=== PATIENT | male | born 1985 | race Caucasian/White ===

== ENCOUNTER 2019-04-09 09:02 | Inpatient (IN) | payer SELFPAY | END 2019-04-15 10:07 | disposition home or self-care (01) | DRG 885 | PROVIDERS: Emergency Provider Emergency Medicine; Family Provider Internal Medicine | DX: F32.2 Major depressive disorder, single episode, severe without psychotic features (principal); R45.851 Suicidal ideations; F11.11 Opioid abuse, in remission; Z28.21 Immunization not carried out because of patient refusal; Z59.0 Homelessness; F17.210 Nicotine dependence, cigarettes, uncomplicated ==

== ENCOUNTER 2019-04-17 18:07 | Inpatient (IN) | payer SELFPAY ==
[2019-04-20] MEDS: trazodone 50 mg Tablet PO (01:23)
[2019-04-20 06:00] VITALS: BP 144/80; PULSE 63; RESP 20; TEMP 36.6; O2SAT 97
[2019-04-20] MEDS: fluoxetine 20 mg Capsule PO (10:19)
[2019-04-20] MEDS: pantoprazole DR 40 mg Tablet PO (10:19)
[2019-04-20 14:00] VITALS: BP 137/85; PULSE 71; RESP 20; TEMP 36.7; O2SAT 94
--- NOTE | 2019-04-20 17:12 | PM.NPN ---
Subjective NPU Subjective: Interval history: The patient presents today reporting that he had a rough time after discharge, a week or so ago. He reports that he had allowed the medication to get in his system, but then when he discharged he did not take the medication for, he reports, a day and a half. He reports being very tearful and having really bad thoughts secondary to the absence of the medication, to which he returned. We had a discussion about the fact that the social media marketing specialist had located a possible option for him, and he was being somewhat reticent to take that option. We discussed the fact that, ultimately, we have very limited resources in this area and once a person is ready to be discharged, and we find an option, we do not have that ability to have a person sit here for days or weeks while they decide whether they are going to accept the options that we are able to scratch out. We discussed the fact that he had every right to go somewhere and work on getting to some other place, but we do not have the ability to allow him to stay because he does not like the distance of long-term from a convenience store, or something like that. He understood and agreed that the medications are improving. We discussed the risks, benefits, and alternatives of maintaining his medication with a possible discharge tomorrow. Mental Status Exam MSE Comments: This is an obese, white male, with adequate dress, grooming, and eye contact. No abnormal movements. Cooperative with exam in no acute distress. Speech was normal rate and volume, and very effeminate. Mood described as getting better; affect congruent. Thought process, organized. Thought content: patient denied any suicidal or homicidal ideation, there were no delusions reported or noted, patient denied any auditory or visual hallucinations. Attention, concentration, and memory appeared intact but were not formally tested. Alert and oriented times three. Insight and judgment are limited but improving. Vitals/I&O/Wt Last Vital Signs Temp 98.1 F 04/20/19 14:00 Pulse 71 04/20/19 14:00 Resp 20 H 04/20/19 14:00 BP 137/85 04/20/19 14:00 Pulse Ox 94 04/20/19 14:00 Weight last 48 hrs Weight 104.326 kg A&P Additional A&P Information Additional A&P Information: This is a 34 year old, white male, with this as his second hospitalization in the last three weeks, with issues of homelessness and lack of access to care, who presents reporting that he is continuing to improve on the medication, and is agreeable to discharge in the morning. Continue current medication. Encourage individual, group, and milieu therapy. Continue q 15 minute checks for safety. Will work with client to get a reasonable housing option for discharge tomorrow. Involuntary Hold Information 96 Hour Hold: 96 Hour Involuntary Admission: No Attestations NPU Medical Necessity Statement*: Inpatient hospitalization is medically necessary and the clinically appropriate intervention at this time. We will continue current medications and plan for discharge in the morning. Coding Level of Care Code Acute Jet Wiper for Joesph Mann
[2019-04-20 20:01] VITALS: BP 130/76; PULSE 74; RESP 18; TEMP 36.6; O2SAT 97
[2019-04-20] MEDS: prazosin 1 mg Capsule PO (20:44)
[2019-04-20] MEDS: trazodone 150 mg Tablet PO (20:44)
[2019-04-21 06:00] VITALS: BP 125/80; PULSE 68; RESP 17; TEMP 36.7; O2SAT 96
[2019-04-21] MEDS: fluoxetine 20 mg Capsule PO (08:31)
[2019-04-21] MEDS: pantoprazole DR 40 mg Tablet PO (08:31)
[2019-04-21 14:00] VITALS: BP 131/81; PULSE 71; RESP 20; TEMP 37.1; O2SAT 97
--- NOTE | 2019-04-21 16:51 | PM.NPN ---
Subjective NPU Subjective: Interval history: Minesh presents today reporting that he needs to stay here until Thursday. He reports that when his father could pick him up. Upon further investigation it was discovered that he had not been conversing with his father but his father would pick him up Thursday morning and get him anywhere he wants to go. He reported that he was desiring some help with sleep and that the trazodone was not as helpful as he would like last night. Reporting he wanted something to knocked me out. We discussed the risks benefits alternatives of some augmenting medications but also discussed with him the importance of developing her good sleep hygiene, and he understood and agreed to proceed as is documented in this note. Mental Status Exam MSE Comments: This is an obese, white male, with adequate dress, grooming, and eye contact. No abnormal movements. Cooperative with exam in no acute distress. Speech was normal rate and volume, and very effeminate. Mood described as alright, but anxious without sleep; affect congruent. Thought process, organized. Thought content: patient denied any suicidal or homicidal ideation, there were no delusions reported or noted, patient denied any auditory or visual hallucinations. Attention, concentration, and memory appeared intact but were not formally tested. Alert and oriented times three. Insight and judgment are limited but improving. Vitals/I&O/Wt Last Vital Signs Temp 98.1 F 04/21/19 19:59 Pulse 64 04/21/19 19:59 Resp 18 04/21/19 19:59 BP 128/81 04/21/19 19:59 Pulse Ox 97 04/21/19 19:59 A&P Additional A&P Information Additional A&P Information: Additional A&P Information: This is a 34 year old, white male, with this as his second hospitalization in the last three weeks, with issues of homelessness and lack of access to care, who presents reporting that he is continuing to improve on the medication, and is agreeable to discharge to a custodial. Continue current medication. Encourage individual, group, and milieu therapy. Continue q 15 minute checks for safety. Will work with client to get a reasonable housing option for discharge Thursday. Involuntary Hold Information 96 Hour Hold: 96 Hour Involuntary Admission: No Attestations NPU Medical Necessity Statement*: Inpatient hospitalization is medically necessary and the clinically appropriate intervention at this time. We will increase his sleep medications and begin to prepare him for discharge Saturday morning. Likely length of stay 2 to 4 days. Coding Level of Care Code Acute Health Policy Nurse for Joesph Mann
[2019-04-21 19:59] VITALS: BP 128/81; PULSE 64; RESP 18; TEMP 36.7; O2SAT 97
[2019-04-21] MEDS: prazosin 1 mg Capsule PO (20:44)
[2019-04-21] MEDS: trazodone 150 mg Tablet PO (20:44)
[2019-04-22 06:00] VITALS: BP 114/69; PULSE 70; RESP 18; TEMP 36.8; O2SAT 97
[2019-04-22] MEDS: fluoxetine 20 mg Capsule PO (08:36)
[2019-04-22] MEDS: pantoprazole DR 40 mg Tablet PO (08:42)
--- NOTE | 2019-04-22 10:15 | DCPLANNER ---
Group Note: Patient attended morning group. Was pleasant and interacted appropriately with other patients.
[2019-04-22 13:07] VITALS: BP 136/86; PULSE 78; RESP 18; TEMP 36.8; O2SAT 96
--- NOTE | 2019-04-22 14:51 | PM.NPN ---
Subjective NPU Subjective: Interval history: Minesh presents today reporting that he did not sleep great last night but he did get the medication. He really wants to try it tonight to make sure that it is effective and works for him when he leaves tomorrow. He reports the plan is that his dad is going to come get him around 11 or so and take him to [place]. He reports that he feels the medications are helpful and the for the most part he has done because they were prescribed to him during his last visit. He feels optimistic about tomorrow and getting back on track. Mental Status Exam MSE Comments: This is an obese, white male, with adequate dress, grooming, and eye contact. No abnormal movements. Cooperative with exam in no acute distress. Speech was normal rate and volume, and very effeminate. Mood described as pretty good; affect congruent. Thought process, organized. Thought content: patient denied any suicidal or homicidal ideation, there were no delusions reported or noted, patient denied any auditory or visual hallucinations. Attention, concentration, and memory appeared intact but were not formally tested. Alert and oriented times three. Insight and judgment are limited but improving. Vitals/I&O/Wt Last Vital Signs Temp 98.9 F 04/22/19 20:25 Pulse 83 04/22/19 20:25 Resp 24 H 04/22/19 20:25 BP 124/82 04/22/19 20:25 Pulse Ox 97 04/22/19 20:25 A&P Assessment and plan (1) Depressive disorder, not elsewhere classified: This is a 34 year old, white male, with this as his second hospitalization in the last three weeks, with issues of homelessness and lack of access to care, who presents reporting that he is continuing to improve on the medication, and is agreeable to discharge to a group home. Continue current medication. Except increase the trazodone and add doxepin Encourage individual, group, and milieu therapy. Continue q 15 minute checks for safety. Will work with client to get a reasonable housing option for discharge Thursday. Status: Acute Code(s): F32.9 - Major depressive disorder, single episode, unspecified (2) Cluster B personality disorder: Status: Acute Code(s): F60.89 - Other specific personality disorders Involuntary Hold Information 96 Hour Hold: 96 Hour Involuntary Admission: No Attestations NPU Medical Necessity Statement*: Inpatient hospitalization is medically necessary and the clinically appropriate intervention at this time. We will increase his sleep medications and begin to prepare him for discharge tomorrow morning. Coding Level of Care Code Acute Photovoltaic Panel Installer for Joesph Mann Diagnoses Depressive disorder, not elsewhere classified F32.9 Cluster B personality disorder F60.89
[2019-04-22] MEDS: nicotine 21 mg Patch 1 PATCH TRANSDERMA (16:21)
[2019-04-22 20:25] VITALS: BP 124/82; PULSE 83; RESP 24; TEMP 37.2; O2SAT 97
[2019-04-22] MEDS: doxepin 10 mg Capsule PO (22:06)
[2019-04-22] MEDS: prazosin 1 mg Capsule PO (22:07)
[2019-04-22] MEDS: trazodone 100 mg Tablet 200 MG PO (22:07)
[2019-04-23 06:00] VITALS: BP 110/67; PULSE 84; RESP 18; TEMP 36.6; O2SAT 98
[2019-04-23] MEDS: fluoxetine 20 mg Capsule PO (09:13)
[2019-04-23] MEDS: pantoprazole DR 40 mg Tablet PO (09:13)
--- NOTE | 2019-04-23 11:40 | PM.NDC ---
Diagnoses at Discharge Discharge Diagnosis (1) Depressive disorder, not elsewhere classified: Status: Acute (2) Cluster B personality disorder: Status: Acute Reason for Visit Reason for Visit: Reason For Visit: Si Hospital Course Hospital Course History of Present Illness Date of Service: Apr 18, 2019 Chief Complaint: Depression, suicidal ideation, homelessness. HPI: Mr. Santana is a 31-year-old male who had sought admission here on the . He was discharged last Thursday and has now returned yesterday. He said he was suicidal again. He is indeed dysphoric but he certainly not dangerously suicidal. However, he having said the magic word , we are left with no choice but to hospitalize him for his safety. For details on this man's life, mood disorder, heroin abuse, recovery (presumed), see Dr. Rubio's admission history and physical. Allergies: Coded Allergies: TRAMADOL (Verified Allergy, Severe, 04/09/19) seizures CODEINE (Verified Allergy, Mild, 04/09/19) itching/burning sensation Active Meds: Current Hospital Medications: Medications (Trade) Dose Ordered Sig/Fredis Route PRN Reason Start Time Stop Time Status Last Admin Dose Admin Lorazepam (Ativan Inj) 2 mg Q4H PRN IM For Severe Aggression 04/17/19 18:15 Haloperidol Lactate (Haldol Inj) 5 mg Q4H PRN IM Severe Aggression 04/17/19 18:15 Diphenhydramine HCl (Benadryl Inj) 50 mg ONCE PRN IV Severe Extrapyramidal Symptoms 04/17/19 18:15 Benztropine Mesylate (Cogentin Tab) 1 mg BID PRN PO Mild Extrapyramidal symptoms 04/17/19 18:15 Benztropine Mesylate (Cogentin Inj) 1 mg ONCE PRN IM Severe Extrapyramidal Symptom 04/17/19 18:15 Acetaminophen (Tylenol Tab) 650 mg Q4H PRN PO FOR MILD PAIN 04/17/19 18:15 Trazodone HCl (Trazodone) 50 mg BEDTIME PRN PO FOR SLEEP 04/17/19 18:15 Nicotine (Nicoderm Patch) 21 mg DAILY PRN TD FOR WITHDRAWAL 04/17/19 18:15 Nicotine Polacrilex (Nicotine Gum) 2 mg Q2H PRN PO Withdrawal 04/17/19 18:15 Haloperidol (Haldol Tab) 5 mg Q4H PRN PO For agitation 04/17/19 18:15 Fluoxetine HCl (Prozac) 20 mg DAILY PO 04/19/19 10:00 Pantoprazole Sodium (Protonix Tab) 40 mg DAILY PO 04/19/19 10:00 Prazosin HCl (Minipres) 1 mg BID PO 04/18/19 22:00 Home Meds: Home Medications: Medications Dose Route/Sig Max Daily Dose Days Date Category Ativan Tab (Lorazepam) 1 Mg Tablet 1 Mg PO DAILY PRN 30 04/15/19 Rx Minipress Cap (Prazosin HCl) 1 Mg Capsule 1 Mg PO HS 30 04/15/19 Rx Protonix Tab (Pantoprazole Sodium) 40 Mg Tabec 40 Mg PO DAILY 30 04/15/19 Rx Prozac Cap (Fluoxetine HCl) 20 Mg Tablet 20 Mg PO DAILY 30 04/15/19 Rx Past Medical History Past Medical History: For details see Dr. Rubio's history and physical report. Nothing is changed in the last week except that he now has a record of one psychiatric hospitalization. Smoke: Reports: Current (somehow this homeless man scrapes together the wherewithal for a pack a day) Occupation: Reports: Unemployed Alcohol: Reports: None Drugs: Reports: Former (he says he is clean from heroin since October) Marital Status: Reports: Other (patient is haney and has no partner) Lives: Reportedly homeless Minesh presented to the ED after having been here about a week ago reporting that things did not go as planned. He endorsed having low mood and struggling with his sleep. He was admitted and his outpatient medications were continued and his trazodone was increased and doxepin was added to assist with his sleep. He showed clear improvement but also demonstrated a likelihood that his presents in the unit was related more to his circumstance to any clear mood disorder. During the hospitalization he had routine laboratory studies which were within normal limits except for a few outliers of those can be seen in this document. Additionally he had a general medical evaluation which limits and revealed no acute processes. At the time of discharge he was absent lethality, his mood was stable, his anxiety was under control and he was sleeping better by our report but not by his. He had obtained the maximum benefit from an inpatient hospitalization so he was discharged. Involuntary Hold Information 96 Hour Hold: 96 Hour Involuntary Admission: No Mental Status Exam MSE Comments: This is an obese, white male, with adequate dress, grooming, and eye contact. No abnormal movements. Cooperative with exam in no acute distress. Speech was normal rate and volume, and very effeminate. Mood described as pretty good; affect congruent. Thought process, organized. Thought content: patient denied any suicidal or homicidal ideation, there were no delusions reported or noted, patient denied any auditory or visual hallucinations. Attention, concentration, and memory appeared intact but were not formally tested. Alert and oriented times three. Insight and judgment are limited but improving. Discharge Data Vitals: Last Vital Signs Temp 97.9 F 04/23/19 06:00 Pulse 84 04/23/19 06:00 Resp 18 04/23/19 06:00 BP 110/67 04/23/19 06:00 Pulse Ox 98 04/23/19 06:00 Discharge Plan Discharge Patient Disposition: Home, Self-Care Condition: Stable Prescriptions: New doxepin 10 mg Capsule 10 mg PO BEDTIME Qty: 30 RF: 1 trazodone 100 mg Tablet 200 mg PO BEDTIME 30 Days Qty: 30 RF: 1 hydroxyzine pamoate 25 mg Capsule 50 mg PO QID PRN (Reason: Anxiety) 30 Days Qty: 60 RF: 1 Continued fluoxetine [Prozac] 20 mg Capsule 20 mg PO DAILY RF: 0 pantoprazole [Protonix] 40 mg Tablet,Delayed Release (Dr/Ec) 40 mg PO DAILY RF: 0 prazosin 1 mg Capsule 1 mg PO BEDTIME 30 Days Qty: 30 RF: 1 Discontinued lorazepam 1 mg Tablet 1 mg PO DAILY PRN (Reason: Anxiety) RF: 0 Discharge Orders: Discharge Order (Routine); Ordered 04/23/19 Ordered By: Lemuel Parry Discharge Diet: Regular Discharge Activity: Resume usual activity Activity Restrictions/Additional Instructions: f you are at risk of becoming homeless or currently without a safe, stable place to stay, please call [phone] or visit us at the [facility], [facility]. One of the [facility] service coordinators will meet with you to help identify resources and options that may meet your individual needs. Hours of Operation: Thursday: 9am ? 5pm Thursday: 9am ? noon and 1pm ? 5pm Thursday: 9am ? 5pm : 10am ? 5pm [place]: 9am ? 5pm* *[facility] is closed the first Thursday of every month Do get there as early as you can in order to have enough time to get settled in/make sure you have a bed. [facility] [address] [place], [place] [address] Possible resource for outpatient mental health services... [facility] Address: [address] [place] [address] or go to [facility] - Walk-in Clinic [address] [facility] [phone] Walk-in Clinic Hours: Thursday-Thursday, 7:30 a.m. to 3:30 p. For [facility] financial assistance for magalis, you could call [phone] Discharge Date/Time: 04/23/19 12:52 Discharge Attestations NPU Time Spent in Discharge Care*: less than 30 min Coding Level of Care Code Acute Rural Route Mail Carrier for [facility]g [facility]wd Diagnoses Depressive disorder, not elsewhere classified F32.9 Cluster B personality disorder F60.89
[2019-04-23 11:58] VITALS: RESP 18; TEMP 36.6; O2SAT 98
[2019-04-23 12:05] VITALS: BP 110/67; PULSE 84; RESP 18; TEMP 36.6; O2SAT 98
[2019-04-23 12:50] VITALS: BP 110/67; PULSE 84; RESP 18; TEMP 36.6; O2SAT 98
== END 2019-04-23 12:52 | disposition home or self-care (01) | DRG 881 ==
PROVIDERS: Emergency Provider Family Medicine; Family Provider Internal Medicine; PCP Nurse Practitioner; Referring Provider Nurse Practitioner; Visit Provider Psychiatry & Neurology Psychiatry
DX: F32.9 Major depressive disorder, single episode, unspecified (principal); R45.851 Suicidal ideations; F17.210 Nicotine dependence, cigarettes, uncomplicated; Z59.0 Homelessness; Z91.128 Patient's intentional underdosing of medication regimen for other reason; E66.9 Obesity, unspecified; Z68.36 Body mass index [BMI] 36.0-36.9, adult; F60.89 Other specific personality disorders; F19.21 Other psychoactive substance dependence, in remission
CPT/HCPCS: 36415; 80053; 80307; 85025; 99232; 99233; 99284; 99285

== ENCOUNTER 2022-11-24 12:26 | Emergency (ER) | payer MEDICAID, SELFPAY ==
[2022-11-24 12:33] VITALS: BP 125/71; PULSE 79; RESP 16; TEMP 36.6; O2SAT 97; BMI 29.0
[2022-11-24 13:23] VITALS: BP 134/81; PULSE 64; TEMP 36.4; O2SAT 96
--- NOTE | 2022-11-24 13:51 | W.ED.DENTAL ---
HPI - Dental/Oral General: Chief complaint: Dental/Oral Stated complaint: tooth pain Time Seen by Provider: 11/24/22 13:12 Source: patient Mode of arrival: ambulatory Limitations: no limitations History of Present Illness: Patient is a 37-year-old male presents to ED today with a complaint of dental pain to his right lower molar. Patient states he had a cap fall off 5 days ago but did not notice pain immediately however states yesterday pain has become significant. He has not noticed any swelling. He is not having any trouble swallowing, breathing, controlling secretions. No fevers. He states he has scheduled a dentist appointment for this . MD Complaint: tooth pain Teeth map: 1. Onset (ago): day(s) Duration: constant Severity: severe Severity scale (1-10): 10 Relieving factors: nothing Exacerbating factors: nothing Context: trauma (mechanism) Associated symptoms: Reports no associated symptoms; Denies ear or mastoid pain, fever(s) or odynophagia Treatment prior to arrival: topical analgesic and oral analgesic Review of Systems Const: Denies: fever(s), chills, body aches, fatigue or malaise Eyes: Denies: change in vision, blurry vision, floaters or seeing flashes ENMT: Reports: dental pain; Denies: odynophagia, swelling of lips/tongue, oral sores, bleeding gums, dry mouth, halitosis or ear or mastoid pain Card: Denies: chest pain Resp: Denies: dyspnea GI: Denies: abdominal pain, nausea, vomiting, diarrhea or change in bowel habits Musc: Denies: neck pain, back pain, extremity pain or joint pain Skin/Breast: Denies: rash Neuro: Denies: headache(s), sensory changes or dizziness Physical Exam Const: COMMON NORMALS: no acute distress, average body habitus, patient oriented x3, no limitations, healthy appearing, alert and well nourished HENMT: COMMON NORMALS: external ears normal, TM's normal bilaterally and Normal external nose present FACE & SINUS: normal facial exam; no edema NOSE: Normal external nose present EXTERNAL EAR: Yes external ears normal TYMPANIC MEMBRANE: TM's normal bilaterally MOUTH: Normal oral and palatal mucosa present, lip normal and tongue normal TEETH & GINGIVA IMAGES: 1. severely fractured/decayed tooth; no abscess formation THROAT: posterior oropharynx normal, tonsils normal and uvula midline Eye: COMMON NORMALS: Equal, round and reactive pupils present and EOMs intact bilaterally GENERAL EYE: appearance normal, both eyes and all related structures PUPIL: Yes Equal, round and reactive pupils present Neck/C-Spine: COMMON NORMALS: full ROM and no lymphadenopathy GENERAL: Yes normal visual inspection, No anterior neck swelling and No submandibular swelling Resp: COMMON NORMALS: normal respiratory effort and clear to auscultation bilaterally AUSCULTATION: clear to auscultation bilaterally Cardio: COMMON NORMALS: regular rate and regular rhythm RATE: regular rate RHYTHM: regular rhythm Neuro: COMMON NORMALS: patient oriented x3 SENSORIUM/ORIENTATION: Yes alert Course Vital Signs: Vital signs: Vital Signs Temperature 97.6 F 11/24/22 13:23 Pulse Rate 64 11/24/22 13:23 Respiratory Rate 16 11/24/22 12:33 Blood Pressure 134/81 11/24/22 13:23 Pulse Oximetry 96 11/24/22 13:23 Oxygen Delivery Me thod Room Air 11/24/22 13:23 MDM - Dental/Oral Medical Decision Making Patient will be given a small amount of pain medications and placed on antibiotics prophylactically in preparation for his upcoming dentist appointment. Discharge Plan Discharge Patient Disposition: Home Clinical Impression: Dental caries, Toothache Condition: Stable Prescriptions: New penicillin V potassium 500 mg tablet 500 mg PO Q8H 7 Days Qty: 21 0RF hydrocodone-acetaminophen 5-325 mg tablet 1 tab PO Q6H PRN (Reason: pain) Qty: 14 0RF No Action fluoxetine [Prozac] 20 mg Capsule 20 mg PO DAILY pantoprazole [Protonix] 40 mg Tablet,Delayed Release (Dr/Ec) 40 mg PO DAILY doxepin 10 mg Capsule 10 mg PO BEDTIME Qty: 30 1RF trazodone 100 mg Tablet 200 mg PO BEDTIME 30 Days Qty: 30 1RF hydroxyzine pamoate 25 mg Capsule 50 mg PO QID PRN (Reason: Anxiety) 30 Days Qty: 60 1RF prazosin 1 mg Capsule 1 mg PO BEDTIME 30 Days Qty: 30 1RF Discharge Orders: Discharge ED (Routine); Ordered 11/24/22 Ordered By: Saida Gleason Patient Instructions: Dental Caries (Cavities), Toothache (ED) Activity Restrictions/Additional Instructions: Follow up with dentist on as scheduled. Coding Level of Care Code ED Account Consultant for Joesph Mann
--- NOTE | 2022-11-28 11:14 | DCPLANNER ---
television station manager called patient due to no primary care physician - no answer at this time.
== END 2022-11-24 14:31 | disposition home or self-care (01) ==
PROVIDERS: Emergency Provider Physician Assistant
DX: K02.9 Dental caries, unspecified (principal)
CPT/HCPCS: 99283

== ENCOUNTER 2022-12-04 07:57 | Emergency (ER) | payer MEDICAID, SELFPAY ==
[2022-12-04 08:03] VITALS: BP 129/59; PULSE 84; RESP 15; TEMP 36.7; O2SAT 97
[2022-12-04 08:28] LABS: Basophils % 0.6 %; Eosinophils # 0.2 10^3/uL (0.0-0.8); Eosinophils % 3.2 %; Hemoglobin 12.2 g/dL (11.7-16.6); Lymphocytes # 1.4 10^3/uL (0.8-4.8); Lymphocytes % 25.7 %; Mean Corpuscular Hemoglobin 29.3 pg (28.0-34.0); Mean Corpuscular Volume 88.9 fl (80-94); Mean Platelet Volume 9.6 fL (7.4-10.4); Monocytes # 0.3 10^3/uL (0.2-0.9); Monocytes % 5.4 %; Neutrophils # 3.49 10^3/uL (1.8-7.7); Neutrophils % 64.9 %; Nucleated Red Blood Cells % 0 %; Platelet Count 190 10^3/cmm (130-400); Red Blood Count 4.16 10^6/uL (4.1-5.3); Red Cell Distribution Width 13.4 % (12.1-15.1); White Blood Count 5.4 10^3/uL (4.0-10.0)
--- NOTE | 2022-12-04 08:37 | ED_ITS ---
HPI - Abdominal Pain General: Chief Complaint: Abdominal Pain Stated Complaint: ABD PAIN Time Seen by Provider: 12/04/22 07:58 Source: patient Mode of arrival: ambulatory Limitations: no limitations History of Present Illness: Patient is a 37-year-old male with history of cholecystectomy and congenital hepatitis C infection who presents to the emergency department complaining of right upper quadrant abdominal pain starting yesterday. Patient describes as a dull constant ache that has shifted back and forth between a 3/10 to a 7/10. He reports having this pain numerous times in the past, where he has presented to the emergency department and had negative work-ups including negative CT scans and ultrasounds. He has taken ibuprofen for pain, with minimal relief. He reports associated nausea and chronic diarrhea, but states that he has not vomited. His pain is not worsened by eating, and states that the only thing to exacerbate it is palpation. He states he does not have a primary care provider, and has never had a colonoscopy. He denies fever, shortness of breath, chest pain, history of alcohol abuse, history of heavy Tylenol use, or any other concerning symptoms. MD elicited complaint: abdominal pain Onset (ago): day(s) Pain Consistency: constant Location: RUQ Severity: moderate Quality: aching and dull Radiation: back Associated Symptoms: Reports diarrhea (Chronic) and nausea; Denies bloating, chills, constipation, dysuria, fever(s), heartburn, hematochezia, hematuria, hematemesis, melena, syncope and vomiting Review of Systems Const: Denies: fever(s), chills, body aches, change in appetite, change in weight, fatigue or malaise Eyes: Denies: change in vision or blurry vision Card: Denies: chest pain, palpitations, irregular heart rhythm, lightheadedness, syncope or dyspnea on exertion Resp: Denies: dyspnea, productive cough or pain on inspiration GI: Reports: abdominal pain, nausea and diarrhea (Chronic); Denies: vomiting, hematemesis, heartburn, constipation, bloating, rectal swelling, rectal itching, hematochezia, melena, mucus in stool or white/light colored stool : Denies: flank pain, difficulty urinating, dysuria, urinary urgency, urinary hesitancy or hematuria Musc: Denies: neck pain, back pain, extremity pain, extremity swelling or joint pain Skin/Breast: Denies: rash Neuro: Denies: headache(s), numbness in extremities, weakness in extremities, sensory changes or dizziness Physical Exam Const: COMMON NORMALS: no acute distress, patient oriented x3, no limitations, alert and well nourished GENERAL APPEARANCE: cooperative NUTRITIONAL APPEARANCE: overweight HENMT: COMMON NORMALS: normocephalic and atraumatic HEAD & SCALP: normal to inspection, normocephalic and atraumatic Eye: COMMON NORMALS: no scleral icterus Neck/C-Spine: COMMON NORMALS: no lymphadenopathy Chest: COMMONS NORMALS: normal inspection of the chest and normal palpation of entire chest wall Resp: COMMON NORMALS: normal respiratory effort and clear to auscultation bilaterally AUSCULTATION: clear to auscultation bilaterally Cardio: COMMON NORMALS: regular rate and regular rhythm RATE: regular rate RHYTHM: regular rhythm GI: COMMON NORMALS: Normal to inspection, nondistended, normoactive bowel sounds present, Soft to palpation, No hepatosplenomegaly present and no masses INSPECTION: Yes normal to inspection and No Abdominal wall edema PALPATION: Yes Soft to palpation, Yes Tenderness to palpation present (GI) Details: RUQ, No Guarding due to palpation present (GI), No Rigid due to palpation, Yes No hepatosplenomegaly present, No Hepatomegaly present and No Ascites present : COMMON NORMALS: Yes no CVA tenderness BLADDER/KIDNEY EXAM: Yes no CVA tenderness Back/Pelvis: COMMON NORMALS: no CVA tenderness, thoracic and lumbar spine normal to inspection, no thoracic nor lumbar tenderness and thoraco-lumbar ROM normal Extremity: COMMON NORMALS: normal to inspection, capillary refill normal, no joint enlargement, no clubbing, cyanosis or edema and no pedal edema GENERAL: Yes normal exam except as noted Neuro: COMMON NORMALS: patient oriented x3, moves all extremities, no focal motor deficits, no sensory deficits noted and gait normal SENSORI UM/ORIENTATION: Yes alert Skin: COMMON NORMALS: no rashes or lesions noted GENERAL SKIN EXAM: no rashes or lesions noted Course Vital Signs: Vital signs: Vital Signs Temperature 98.1 F 12/04/22 08:03 Pulse Rate 73 12/04/22 09:36 Respiratory Rate 15 12/04/22 08:03 Blood Pressure 129/59 12/04/22 08:03 Pulse Oximetry 97 12/04/22 09:36 Oxygen Delivery Me thod Room Air 12/04/22 09:36 MDM - Abdominal Pain Medical Decision Making Patient is a 37-year-old male here with complaints of right upper quadrant pain starting yesterday. He states he has had similar pain several times previously. Patient was mildly tender to palpation on the right upper quadrant, but was nontender anywhere else and did not have any CVA tenderness. Patient's pain and nausea have improved throughout his ED course with the use of IV pain meds/antiemetics/GI cocktail. Labs today are unremarkable. Urinalysis obtained revealed a small amount of blood in his urine but nothing to suggest infection. Patient has nothing on exam/history to use suggest kidney or ureter lithiasis. Patient will be discharged home with prescriptions for Zofran. He is requesting something for discomfort that does not contain Tylenol given his history of hepatitis C. He is also requesting f/u with PCP so referral was placed for this. Patient agrees with this plan and feels comfortable going home, as he states he is pain and nausea free at this time. Lab Data 12/04/22 08:23 12/04/22 08:23 Labs/Radiology: Laboratory Results WBC 5.4 10^3/uL (4.0-10.0) 12/04/22 08: RBC 4.16 10^6/uL (4.1-5.3) 12/04/22 08: Hgb 12.2 g/dL (11.7-16.6) 12/04/22 08: Hct 37.0 % (42.0-52.0) L 12/04/22 08: MCV 88.9 fl (80-94) 12/04/22 08:23 MCH 29.3 pg (28.0-34.0) 12/04/22 08: MCHC 33.0 g/dL (30.0-36.0) 12/04/22 08: RDW 13.4 % (12.1-15.1) 12/04/22 08: Plt Count 190 10^3/cmm (130-400) 12/04/22 08: MPV 9.6 fL (7.4-10.4) 12/04/22 08: Neut % (Auto) 64.9 % 12/04/22 08:23 Lymph % (Auto) 25.7 % 12/04/22 08:23 [place] % (Auto) 5.4 % 12/04/22 08:23 Eos % (Auto) 3.2 % 12/04/22 08:23 Baso % (Auto) 0.6 % 12/04/22 08:23 Neut # (Auto) 3.49 10^3/uL (1.8-7.7) 12/04/22 08:23 Lymph # (Auto) 1.4 10^3/uL (0.8-4.8) 12/04/22 08:23 [place] # (Auto) 0.3 10^3/uL (0.2-0.9) 12/04/22 08: Eos # (Auto) 0.2 10^3/uL (0.0-0.8) 12/04/22 08: Baso # (Auto) 0.0 10^3/uL (0.0-0.1) 12/04/22 08: Nucleated RBC % (auto) 0 % 12/04/22 08: Nucleated RBCs # 0.0 /100WBC 12/04/22 08:23 Sodium 140 mmol/L (136-145) 12/04/22 08:23 Potassium 4.3 mmol/L (3.5-5.1) 12/04/22 08: Chloride 106 mmol/L (98-107) 12/04/22 08:23 Carbon Dioxide 24 mmol/L (22-29) 12/04/22 08:23 Anion Gap 14.3 (5-19) 12/04/22 08:23 BUN 9 mg/dL (6-20) 12/04/22 08:23 Creatinine 0.6 mg/dL (0.7-1.2) L 12/04/22 08:23 GFR Calculation 152.4 mL/min (90-130) H 12/04/22 08:23 Glucose 122 mg/dL (65-115) H 12/04/22 08:23 Calculated Osmolality 290 mOsm/kg (285-295) 12/04/22 08:23 Calcium 8.7 mg/dL (8.5-10.5) 12/04/22 08:23 Total Bilirubin 0.4 mg/dL (0.15-1.2) 12/04/22 08:23 AST 29 U/L (0-40) 12/04/22 08:23 ALT 12 U/L (0-41) 12/04/22 08: Alkaline Phosphatase 71 U/L (40-130) 12/04/22 08:23 Total Protein 7.4 g/dL (6.6-8.7) 12/04/22 08:23 Albumin 3.9 g/dL (3.5-5.2) 12/04/22 08:23 Globulin 3.5 g/dL (1.3-4.6) 12/04/22 08:23 Lipase 20 U/L (13-60) 12/04/22 08:23 Urine Color Yellow (Yellow) 12/04/22 09:43 Urine Appearance Clear (CLEAR) 12/04/22 09:43 Urine pH 5 (5-7) 12/04/22 09:43 Ur Specific [place] 1.020 (1.005-1.030) 12/04/22 09:43 Urine Protein Neg (Negative) 12/04/22 09:43 Urine Glucose (UA) Norm (Normal) 12/04/22 09:43 Urine Ketones Negative (Negative) 12/04/22 09:43 Urine Blood 2+ (Negative) H 12/04/22 09:43 Urine Nitrate Negative (Negative) 12/04/22 09:43 Urine Bilirubin Neg (Negative) 12/04/22 09:43 Urine Urobilinogen Norm mg/dL (Negative) 12/04/22 09:43 Ur Leukocyte Esterase Negative (Negative) 12/04/22 09:43 Urine RBC 5-10 /hpf (0-2) H 12/04/22 09:43 Urine WBC 10-15 /hpf (0-5) H 12/04/22 09:43 Ur Squamous Epith Cells Rare /hpf (0-5) 12/04/22 09:43 Amorphous Sediment Not Reportable 12/04/22 09:43 Urine Bacteria Trace /hpf (NONE) 12/04/22 09:43 Discharge Plan Discharge Patient Disposition: Home Clinical Impression: RUQ abdominal tenderness Qualifiers: Presence of rebound: not specified Qualified Code(s): R10.811 - Right upper quadrant abdominal tenderness Condition: Stable Prescriptions: New ondansetron 4 mg tablet,disintegrating 4 mg PO Q8H PRN (Reason: nausea and vomiting) Qty: 14 0RF diclofenac sodium 50 mg tablet,delayed release (DR/EC) 50 mg PO Q12H PRN (Reason: pain) Qty: 20 0RF Discontinued naproxen 250 mg Tablet 250 mg PO BID PRN (Reason: Pain) ibuprofen [Advil] 200 mg Tablet 400 mg PO Q6H PRN (Reason: Pain) No Action Nexium 20 mg Capsule,Delayed Release(Dr/Ec) 20 mg PO DAILY Discharge Orders: Discharge ED (Routine); Ordered 12/04/22 Ordered By: Saida Gleason Referrals: Tab Kim MD [Primary Care Provider] - Patient Instructions: Abdominal Pain - Adult, Acute Abdominal Pain (DC) Activity Restrictions/Additional Instructions: As we discussed we will place a referral to get you set up with a primary care provider for further evaluation. Your blood work today was unremarkable. You did have a small amount of blood in your urine without signs of infection. This time you are not having any signs or symptoms to suggest bladder infection or kidney/ureter stone. Please return to the emergency department for worsening abdominal pain, flank pain, painful or bloody urination, fevers, or persistent nausea and vomiting, or any other concerns you may have. I hope you begin to feel better soon. Coding Level of Care Code ED Home Improvement Contractor for Joesph Mann
[2022-12-04 08:52] LABS: Alanine Aminotransferase 12 U/L (0-41); Albumin Level 3.9 g/dL (3.5-5.2); Alkaline Phosphatase 71 U/L (40-130); Blood Urea Nitrogen 9 mg/dL (6-20); Calcium 8.7 mg/dL (8.5-10.5); Carbon Dioxide 24 mmol/L (22-29); Chloride 106 mmol/L (98-107); Globulin 3.5 g/dL (1.3-4.6); Glomerular Filtration Rate 152.4 mL/min (90-130); Glucose 122 mg/dL (65-115); Lipase 20 U/L (13-60); Osmolality Calculated 290 mOsm/kg (285-295); Sodium 140 mmol/L (136-145); Total Bilirubin 0.4 mg/dL (0.15-1.2); Total Protein 7.4 g/dL (6.6-8.7)
[2022-12-04 09:04] LABS: Anion Gap 14.3 (5-19); Aspartate Amino Transferase 29 U/L (0-40); Potassium 4.3 mmol/L (3.5-5.1)
[2022-12-04] MEDS: sodium chloride 0.9% 1,000 ML 999 ML IV (09:29)
[2022-12-04] MEDS: aluminum-mag hydrox-simethicon 30 ML, sucralfate oral liq 1 GM PO (09:29)
[2022-12-04] MEDS: ondansetron 2 mg/ML SDV 2 mL 4 MG IVP (09:29)
[2022-12-04] MEDS: morphine 4 mg/mL SDV 1 mL IVP (09:29)
[2022-12-04 09:36] VITALS: PULSE 73; O2SAT 97
[2022-12-04 09:59] LABS: Blood Urine 2+ (Negative); Glucose Urine UA Norm (Normal); Ketones Urine Negative (Negative); Nitrate Urine Negative (Negative); Protein Urine Neg (Negative); Urine Appearance Clear (CLEAR); Urine Color Yellow (Yellow); pH Urine 5 (5-7)
[2022-12-04 10:00] LABS: Add Urine Microscopic? YES; Bilirubin Urine Neg (Negative); Leukocyte Esterase Urine Negative (Negative); Urobilinogen Urine Norm (Negative)
[2022-12-04 10:04] LABS: Bacteria Urine TRACE /hpf; Squamous Epithelial Cell Urine RARE /hpf (0-5)
[2022-12-04 10:06] LABS: Add Urine Culture? No
[2022-12-04 10:17] VITALS: BP 129/74; PULSE 80; O2SAT 98
--- NOTE | 2022-12-05 11:58 | DCPLANNER ---
is/it project manager had message to speak with patient about getting established with a primary care physician - no answer at this time.
== END 2022-12-04 10:15 | disposition home or self-care (01) ==
PROVIDERS: Emergency Medicine; Emergency Provider Physician Assistant; PCP Internal Medicine
DX: R10.811 Right upper quadrant abdominal tenderness (principal)
CPT/HCPCS: 80053; 81001; 83690; 85025; 96374; 96375; 99284; J2270; J2405; J7030

== ENCOUNTER 2023-11-15 13:52 | Emergency (ER) | payer MEDICAID, SELFPAY ==
[2023-11-15 13:57] VITALS: BP 133/71; PULSE 88; RESP 14; TEMP 36.8; O2SAT 96; BMI 22.9
--- NOTE | 2023-11-15 14:22 | ED.C_ITS ---
HPI - Psych General: Chief Complaint: Psychiatric Symptoms Stated Complaint: [place] Time Seen by Provider: 11/15/23 14:15 History of Present Illness: 38-year-old man with a history of anxiet y and depression who presents to the emergency room with worsening anxiety and depression. He says he is not having suicidal thoughts, but he feels like they might be creeping in he has not harmed himself. He has no homicidal thoughts. He says he would like to be admitted here to the [facility] so they can help him with his medications. However there are no open beds today. He does not want to be transferred elsewhere, and again I have asked several times if he is have any suicidal thoughts and he says no and he will return to the emergency room if his symptoms worsen.. Review of Systems Narrative: Constitutional symptoms: Negative except as documented in HPI. Skin symptoms: Negative except as documented in HPI. Eye symptoms: Negative except as documented in HPI. ENMT symptoms: Negative except as documented in HPI. Respiratory symptoms: Negative except as documented in HPI. Cardiovascular symptoms: Negative except as documented in HPI. Gastrointestinal symptoms: Negative except as documented in HPI. Genitourinary symptoms: Negative except as documented in HPI. Musculoskeletal symptoms: Negative except as documented in HPI. Neurologic symptoms: Negative except as documented in HPI. Psychiatric symptoms: Negative except as documented in HPI. Endocrine symptoms: Negative except as documented in HPI. Physical Exam Narrative: EXAM NARRATIVE: General: Alert, no acute distress. Skin: Warm, dry. Head: Normocephalic, atraumatic. Neck: Supple, trachea midline. Eye: Extraocular movements are intact. Ears, nose, mouth and throat: mucosa moist. Cardiovascular: Regular, Normal peripheral perfusion. Respiratory: Lungs are clear to auscultation, respirations are non-labored, breath sounds are equal, Symmetrical chest wall expansion. Gastrointestinal: Soft, Nontender, Non distended Musculoskeletal: Normal ROM, no deformity. Neurological: Alert and oriented, No focal neurological deficit observed. Psychiatric: Cooperative, patient is very anxious Course Vital Signs: Vital signs: Vital Signs Temperature 98.2 F 11/15/23 13:57 Pulse Rate 88 11/15/23 13:57 Respiratory Rate 14 11/15/23 13:57 Blood Pressure 133/71 11/15/23 13:57 Pulse Oximetry 96 11/15/23 13:57 [facility] - Psych Medical Decision Making Assessment and plan: Anxiety Depression -1 mg IM Ativan and 20 mg IM Geodon in the emergency room to help with his symptoms. - Discharged home - Discussed findings and plan with patient. Answered any questions. - All laboratory values were reviewed and interpreted personally by myself, the ER physician - All imaging was reviewed and interpreted personally by myself, the ER physician. - Evaluation and treatment of this problem were appropriate in the emergency setting No radiology studies performed this visit Discharge Plan Discharge Patient Disposition: Home Clinical Impression: Depression, Anxiety Condition: Stable Prescriptions: No Action Nexium 20 mg Capsule,Delayed Release(Dr/Ec) 20 mg PO DAILY ondansetron 4 mg tablet,disintegrating 4 mg PO Q8H PRN (Reason: nausea and vomiting) Qty: 14 0RF diclofenac sodium 50 mg tablet,delayed release (DR/EC) 50 mg PO Q12H PRN (Reason: pain) Qty: 20 0RF Discharge Orders: Discharge ED (Routine); Ordered 11/15/23 Ordered By: Erma Camacho Discharge Diet: Usual diet Discharge Activity: Resume usual activity Patient Instructions: Depression (ED), Anxiety (ED) Activity Restrictions/Additional Instructions: If you develop suicidal thoughts, or thoughts of harming yourself, or thoughts of harming others please seek medical attention immediately. Thank you for choosing [facility] for your healthcare needs today. Please realize this is an emergency room and that we are providing you with a medical screening exam and this may not be complete and all inclusive of all the testing and or work up that you may need to determine your ailment or severity of your illness. You have been screened and evaluated and felt safe for discharge. Health conditions do change or evolve sometimes and as such it is important that you follow up with your Primary Doctor to be re checked, 3-5 days is a general good time frame for follow up. You are always welcome to return to the ED for re assessment if your symptoms are worsening or you have new concerns Coding Level of Care Code ED Swing Frame Grinder Operator for Joesph Mann
--- NOTE | 2023-11-15 15:28 | ECG_ITS ---
[facility] Test Date: 2023-11-15 Pat Name: Minesh Vidal Department: Room: Gender: Male Public Message Service Supervisor: : 1985 Requested By: Erma Patterson Order Number: [id number] Rose MD: Ceci Vyas M.D. Measurements Intervals [place] Rate: 52 P: 31 IA: 103 QRS: 43 QRSD: 97 T: 45 QT: 422 QTc: 393 Interpretive Statements SINUS BRADYCARDIA Compared to ECG 04/09/2019 09:34:58 Heart rate is low Electronically Signed On 11-15-2023 16:04:11 CDT by Ceci Vyas M.D. [id number]
[2023-11-15 15:47] LABS: Amphetamines Screen Urine Negative (Negative); Barbiturates Screen Urine Negative (Negative); Benzodiazepines Screen Urine Negative (Negative); Cocaine Screen Urine Negative (Negative); Opiate Screen Urine Negative (Negative); PCP Screen Urine Negative (Negative); THC Screen Urine Positive (Negative)
[2023-11-15 15:56] LABS: Basophils % 0.4 %; Eosinophils # 0.1 10^3/uL (0.0-0.8); Eosinophils % 1.8 %; Hematocrit 41.6 % (37-53); Lymphocytes # 2.4 10^3/uL (0.8-4.8); Lymphocytes % 31.2 %; Mean Corpuscular HGB Conc 33.4 g/dL (30-55); Mean Corpuscular Hemoglobin 30.2 pg (27-33); Mean Corpuscular Volume 90.4 fl (82-101); Mean Platelet Volume 8.6 fL (7.4-10.4); Monocytes # 0.6 10^3/uL (0.2-0.9); Monocytes % 7.1 %; Neutrophils # 4.57 10^3/uL (1.8-7.7); Neutrophils % 59.2 %; Nucleated Red Blood Cells % 0 %; Platelet Count 167 10^3/cmm (157-399); Red Cell Distribution Width 12.8 % (12.1-15.1); White Blood Count 7.72 10^3/uL (3.29-11.43)
[2023-11-15 16:23] LABS: Alanine Aminotransferase 22 U/L (0-41); Albumin Level 4.3 g/dL (3.5-5.2); Alkaline Phosphatase 87 U/L (40-130); Anion Gap 14.1 (5-19); Aspartate Amino Transferase 33 U/L (0-40); Blood Urea Nitrogen 15 mg/dL (6-20); Calcium 9.1 mg/dL (8.5-10.5); Carbon Dioxide 26 mmol/L (22-29); Chloride 103 mmol/L (98-107); Creatinine Clr Calc Pharmacy 148.8391; Globulin 3.8 g/dL (1.3-4.6); Glomerular Filtration Rate 126.9 mL/min (90-130); Glucose 85 mg/dL (65-115); Osmolality Calculated 288 mOsm/kg (285-295); Potassium 4.1 mmol/L (3.5-5.1); Sodium 139 mmol/L (136-145); Thyroid Stimulating Hormone 2.13 uIU/mL (0.27-4.20); Total Bilirubin 0.5 mg/dL (0.15-1.2); Total Protein 8.1 g/dL (6.6-8.7)
[2023-11-15 16:26] LABS: Acetaminophen < 5.0 ug/mL (10-30); Alcohol Level < 10 mg/dL (0-10); Salicylate < 0.3 mg/dL (3-10)
[2023-11-15 17:54] LABS: Urine Appearance Cloudy (CLEAR); Urine Color Yellow (Yellow); pH Urine 5 (5-7)
[2023-11-15 17:55] LABS: Add Urine Culture? Yes; Bacteria Urine 3+ /hpf; Bilirubin Urine Neg (Negative); Blood Urine Neg (Negative); Glucose Urine UA Norm (Normal); Ketones Urine Negative (Negative); Leukocyte Esterase Urine Trace (Negative); Nitrate Urine Negative (Negative); Protein Urine Trace (Negative); Urobilinogen Urine 1 mg/dL (Negative); WBC Urine 15-25 /hpf (0-5)
[2023-11-15] MEDS: ziprasidone hcl 20 mg Capsule PO (18:19)
[2023-11-15] MEDS: LORazepam 1 mg Tablet PO (18:19)
[2023-11-15] MEDS: cephALEXin 500 mg Capsule PO (18:22)
[2023-11-15 19:36] VITALS: BP 147/88; PULSE 54; RESP 16; TEMP 36.6; O2SAT 96
== END 2023-11-15 20:15 | disposition short-term general hospital (02) ==
PROVIDERS: Emergency Provider Emergency Medicine
DX: F32.A Depression, unspecified (principal); F41.9 Anxiety disorder, unspecified; R00.1 Bradycardia, unspecified; N39.0 Urinary tract infection, site not specified
CPT/HCPCS: 36415; 80053; 80306; 80307; 81001; 84443; 85025; 87086; 93005; 99285

== ENCOUNTER 2024-06-12 09:08 | Emergency (ER) | payer OTHER, MEDICAID, SELFPAY ==
[2024-06-12 09:13] VITALS: BP 142/77; PULSE 70; RESP 16; TEMP 36.6; O2SAT 98; BMI 27.2
--- NOTE | 2024-06-12 09:13 | ECG_ITS ---
[facility] Test Date: 2024-06-12 Pat Name: Minesh Vidal Department: Room: Gender: Male Talent Analyst: : 1985 Requested By: Diana Patterson Order Number: [id number] Rose MD: SANKET GOMEZ Measurements Intervals [place] Rate: 70 P: 43 AK: 116 QRS: 38 QRSD: 93 T: 28 QT: 335 QTc: 362 Interpretive Statements SINUS RHYTHM WITH SHORT AK INTERVAL INTERPRETATION BASED ON A DEFAULT AGE OF 40 YEARS Compared to ECG 11/15/2023 16:01:19 Short AK interval now present Sinus bradycardia no longer present Electronically Signed On 06-14-2024 23:38:54 GLAZE CARRIER by SANKET GOMEZ [id number]
--- NOTE | 2024-06-12 09:53 | W.ED.ARRPALP ---
HPI - Arrhythmia/Palpitations General: Chief Complaint: Arrhythmia/Palpitations Stated Complaint: feels like heart is skipping a beat Time Seen by Provider: 06/12/24 09:26 History of Present Illness: This patient is a 39-year-old male presenting with complaints of his heart skipping beats. He said he has had this problem off and on for a long time but it has been more severe in the past few days. He said it mostly happens when he first stands up. He does not get lightheaded or feel like he has to sit back down. Since yesterday the symptoms have occurred at rest as well. They do not keep him from doing any activity. Although he does not have a particularly active lifestyle. He denies caffeine or energy drinks. He did use to use energy drinks quite a bit. He does smoke cigarettes. He admits to being under a lot of stress in his life. He is on methadone which is his only prescription currently. He has other psychiatric medications listed on prior medication list and he is not currently taking them. He does say that he has an appointment with a new primary care physician coming up soon. He was not able to recall her name. He reports that his father has a history of palpitations and no other cardiac history in his family. He denies leg pain or swelling. No shortness of breath. No nausea vomiting. No fevers. He has some mild chronic cough which is unchanged. No urinary or bowel changes. He does say that he understands that palpitations are not serious but he wanted to make sure that that is all that was happening with him. He also tells me that he is aware that methadone can cause a long QT syndrome but does not think that is related to his current palpitations. Related Data Home Medications ?Medication ?Instructions ?Recorded ?Confirmed methadone 40 mg soluble tablet 100 mg PO DAILY 06/12/24 06/12/24 Allergies Allergy/AdvReac Type Severity Reaction Status Date / Time tramadol Allergy Severe ADR-Seizure Verified 11/15/23 14:02 codeine Allergy Mild ADR-Itching Verified 11/15/23 14:02 Physical Exam Const: COMMON NORMALS: no acute distress, patient oriented x3, no limitations and alert GENERAL APPEARANCE: cooperative and comfortable HENMT: HEAD & SCALP: normal to inspection FACE & SINUS: normal facial exam Eye: GENERAL EYE: appearance normal, both eyes and all related structures Neck/C-Spine: COMMON NORMALS: supple, no meningeal signs and no JVD Chest: COMMONS NORMALS: normal inspection of the chest Resp: COMMON NORMALS: normal respiratory effort, No use of accessory muscles and clear to auscultation bilaterally AUSCULTATION: clear to auscultation bilaterally Cardio: COMMON NORMALS: no JVD, regular rate, regular rhythm and No murmurs present (Cardio) RATE: regular rate RHYTHM: regular rhythm GI: COMMON NORMALS: Normal to inspection, nondistended, normoactive bowel sounds present, Soft to palpation and non-tender INSPECTION: Yes normal to inspection AUSCULTATION: Yes normoactive bowel sounds PALPATION: Yes Soft to palpation Back/Pelvis: COMMON NORMALS: thoracic and lumbar spine normal to inspection Extremity: COMMON NORMALS: normal to inspection Neuro: COMMON NORMALS: patient oriented x3, moves all extremities, no focal motor deficits and no sensory deficits noted SENSORIUM/ORIENTATION: Yes alert MENINGEAL SIGNS: Yes no meningeal signs Psych: COMMON NORMALS: mental status grossly normal, cooperative and normal affect Skin: COMMON NORMALS: no rashes or lesions noted and turgor normal GENERAL SKIN EXAM: no rashes or lesions noted and turgor normal Course Vital Signs: Vital signs: Vital Signs Temperature 97.9 F 06/12/24 09:13 Pulse Rate 75 06/12/24 10:05 Respiratory Rate 16 06/12/24 09:13 Blood Pressure 117/73 06/12/24 10:05 Pulse Oximetry 97 06/12/24 10:05 Oxygen Delivery Me thod Room Air 06/12/24 09:13 MDM - Arrhythmia/Palpitations Medical Decision Making The patient reports no serious or concerning symptoms. I was able to reproduce the palpitations by having him stand at the bedside. He had a normal sinus rhythm with occasional PVCs which he was able to feel. He reports that he never has more than 1 in a row. They do not seem to be associated with any sort of exertion other than that he notices them more when he is standing. We discussed whether any further workup was needed and he was comfortable with following up with his PCP. We discussed drinking plenty of fluids, keeping a regular schedule to minimize stress and sleep deprivation. We discussed the chronic and acute effects of smoking and recommended that he stop or at least cut down the significantly. All radiology interpretation(s) finalized by discharge Discharge Plan Discharge Patient Disposition: Home Clinical Impression: Palpitations, Anxiety, Tobacco abuse Condition: Stable Prescriptions: No Action methadone 40 mg Tablet,Soluble 100 mg PO DAILY Discharge Orders: Discharge ED (Routine); Ordered 06/12/24 Ordered By: Diana Stuart Discharge Diet: Advance as tolerated Discharge Activity: Resume usual activity Patient Instructions: Opioid Safety, Pain Management Activity Restrictions/Additional Instructions: Make sure to keep your appointment to see your new primary care provider. Consider seeing your counselor for assistance in dealing with your stress. Follow a regular sleep schedule, cut down on smoking and avoid caffeine or energy drinks. Regular exercise can be a great way to handle stress. Print Language: Nepali Coding Level of Care Code ED Systems Development Consultant for Joesph Mann
--- NOTE | 2024-06-12 09:53 | PC.PHAR ---
Patient states he takes 2 and a half 40mg wafers for a total of 100mg daily .
[2024-06-12 10:05] VITALS: BP 117/73; PULSE 75; O2SAT 97
== END 2024-06-12 10:06 | disposition home or self-care (01) ==
PROVIDERS: Emergency Provider Emergency Medicine
DX: R00.2 Palpitations (principal); R41.9 Unspecified symptoms and signs involving cognitive functions and awareness; Z72.0 Tobacco use
CPT/HCPCS: 93005; 99283

== ENCOUNTER → 2024-07-07 10:37 | Outpatient (BNVA) | payer OTHER, MEDICAID, SELFPAY | PROVIDERS: PCP Family Medicine; Visit Provider Family Medicine | DX: Z13.6 Encounter for screening for cardiovascular disorders (principal) | CPT/HCPCS: 85025 ==

== ENCOUNTER 2024-07-29 08:31 | Inpatient (IN) | payer OTHER, MEDICAID, SELFPAY ==
[2024-07-29 08:35] VITALS: BP 152/90; PULSE 119; RESP 18; TEMP 36.9; O2SAT 96; BMI 29.9
--- NOTE | 2024-07-29 08:44 | ECG_ITS ---
[facility] Date: 2024-07-29 Pat Name: Minesh Vidal Department: Room: Gender: Male Spa Attendant: : 1985 Requested By: Erma Patterson Order Number: [id number] Rose MD: Oksana Dhaliwal M.D. Measurements Intervals [place] Rate: 111 P: 32 CO: 128 QRS: 33 QRSD: 101 T: 1 QT: 324 QTc: 441 Interpretive Statements SINUS TACHYCARDIA ABNORMAL RHYTHM ECG Compared to ECG 06/12/2024 09:13:41 Sinus rhythm no longer present Short CO interval no longer present Electronically Signed On 07-30-2024 13:08:49 CDT by Oksana Dhaliwal M.D. [id number] [id number]
--- NOTE | 2024-07-29 08:50 | W.ED.PSYCHS ---
HPI - Psych General: Chief Complaint: Psychiatric Symptoms Stated Complaint: MHE Time Seen by Provider: 07/29/24 08:45 History of Present Illness: 39-year-old man with a history of anxiety, ADHD and depression who presents the emergency room with anxiety and depression. He says he is had multiple significant life stressors recently. He is currently very anxious and tearful. He says he is not yet suicidal but he says that if this goes on much longer he will become suicidal and wants to be admitted to the hospital. Related Data Home Medications ?Medication ?Instructions ?Recorded ?Confirmed methadone 40 mg soluble tablet 100 mg PO DAILY 06/12/24 07/29/24 Previous Rx's ?Medication ?Instructions ?Recorded omeprazole 20 mg capsule,delayed 20 mg PO DAILY PRN acid reflux #60 07/07/24 release caps venlafaxine 37.5 mg 37.5 mg PO DAILY #30 caps 07/07/24 capsule,extended release 24 hr (Effexor XR) ammonium lactate 12 % lotion 1 applic topical DAILY #400 grams 07/14/24 (AmLactin) Allergies Allergy/AdvReac Type Severity Reaction Status Date / Time tramadol Allergy Severe ADR-Seizure Verified 07/07/24 09:54 sulfamethoxazole (From Allergy Intermediate hives Verified 07/07/24 09:54 Bactrim) trimethoprim (From Bactrim) Allergy Intermediate hives Verified 07/07/24 09:54 codeine Allergy Mild ADR-Itching Verified 07/07/24 09:54 Review of Systems Narrative: Constitutional symptoms: Negative except as documented in HPI. Skin symptoms: Negative except as documented in HPI. Eye symptoms: Negative except as documented in HPI. ENMT symptoms: Negative except as documented in HPI. Respiratory symptoms: Negative except as documented in HPI. Cardiovascular symptoms: Negative except as documented in HPI. Gastrointestinal symptoms: Negative except as documented in HPI. Genitourinary symptoms: Negative except as documented in HPI. Musculoskeletal symptoms: Negative except as documented in HPI. Neurologic symptoms: Negative except as documented in HPI. Psychiatric symptoms: Negative except as documented in HPI. Endocrine symptoms: Negative except as documented in HPI. [facility] ED PFSH: Medical History (Updated 07/29/24 @ 10:49 by Erma Camacho MD) Palpitations Ichthyosis vulgaris Severe tobacco use disorder Methamphetamine use disorder, mild Marijuana use Anxiety Xerosis cutis Autism ADHD High risk medication use GERD (gastroesophageal reflux disease) Moderate major depression Family History (Updated 07/07/24 @ 10:01 by Michelle Suaerz CMA) Grandfather Diabetes mellitus, type 2 Grandmother Diabetes mellitus, type 2 Father Diabetes mellitus, type 2 Mother Diabetes mellitus, type 2 Social History (Updated 07/07/24 @ 10:03 by Michelle Suarez CMA) Smoking and tobacco/nicotine status: current every day tobacco/nicotine user Alcohol intake: never Substance/Drug Use: former Adopted: No Lives independently: Yes Household members: friend(s) Marital status: Single Number of children: 0 Current occupational status: unemployed Ela/Sikh: Catholic Physical Exam Narrative: EXAM NARRATIVE: General: Alert. no acute distress Skin: Warm, dry Head: Normocephalic, atraumatic. Neck: Supple, trachea midline. Eye: Extraocular movements are intact. Ears, nose, mouth and throat: Oral mucosa moist. Cardiovascular: Regular rate and rhythm, Normal peripheral perfusion. Respiratory: Lungs are clear to auscultation, respirations are non-labored, breath sounds are equal, Symmetrical chest wall expansion. Gastrointestinal: Soft, Nontender, Non distended, Normal bowel sounds. Musculoskeletal: Normal ROM, no deformity. Neurological: Alert and oriented to person, place, time, and situation, No focal neurological deficit observed. Psychiatric: Cooperative, depressed, expresses suicidal ideation. Tearful and anxious Course Vital Signs: Vital signs: Vital Signs Temperature 98.5 F 07/29/24 08:35 Pulse Rate 119 H 07/29/24 08:35 Respiratory Rate 18 07/29/24 09:02 Blood Pressure 152/90 07/29/24 08:35 Pulse Oximetry 96 07/29/24 08:35 Oxygen Delivery Me thod Room Air 07/29/24 08:35 MDM - Psych Medical Decision Making Differential diagnosis: Patient with reported depression and suicidal ideation. concerns for infection, alcohol intoxication, cardiac issues or other medical problems prior to psychiatric admission. Workup: labwork, ekg ordered to evaluate the pathologies and to clear the patient medically prior to psychiatric admission EKG: Time 8:48 AM. Rate 111. Sinus tachycardia, No ST-T changes, no ectopy, normal NV & QRS intervals, This was reviewed and interpreted by myself the ER physician at 8:52 AM Lab Review: Laboratory results were reviewed and interpreted by myself the emergency room physician. - Medically cleared. - EKG shows no ischemic changes. - Blood alcohol level is negative, -Tylenol and salicylate levels are negative. - Drug screen is positive for marijuana - No signs of infection, urinalysis has some white cells but no bacteria and no leukocyte Estrace. And white count is not elevated - No anemia. - BUN and creatinine are within normal limits. Consultation: I spoke with Dr. Jara is on-call for psychiatry who agrees to admission. Assessment and plan: Depression Anxiety ?P.o. Ativan for his anxiety in the emergency room per patient request -Admission to neuropsychiatric unit for continued evaluation and treatment. - All lab work was reviewed and interpreted personally by myself, the ER physician - Evaluation and treatment of this problem were appropriate in the emergency setting Lab Data 07/29/24 09:55 07/29/24 09:55 Laboratory Results WBC 8.05 10^3/uL (3.29-11.43) 07/29/24 09:55 RBC 4.44 10^6/uL (3.85-5.65) 07/29/24 09:55 Hgb 13.00 g/dL (11.27-16.99) 07/29/24 09:55 Hct 39.4 % (37-53) 07/29/24 09:55 MCV 88.7 fl (82-101) 07/29/24 09:55 MCH 29.3 pg (27-33) 07/29/24 09:55 MCHC 33.0 g/dL (30-55) 07/29/24 09:55 RDW 13.1 % (12.1-15.1) 07/29/24 09:55 Plt Count 171 10^3/cmm (157-399) 07/29/24 09:55 MPV 8.4 fL (7.4-10.4) 07/29/24 09:55 Neut % (Auto) 72.0 % 07/29/24 09:55 Lymph % (Auto) 20.2 % 07/29/24 09:55 [place] % (Auto) 5.6 % 07/29/24 09:55 Eos % (Auto) 1.4 % 07/29/24 09:55 Baso % (Auto) 0.6 % 07/29/24 09:55 Neut # (Auto) 5.79 10^3/uL (1.8-7.7) 07/29/24 09:55 Lymph # (Auto) 1.6 10^3/uL (0.8-4.8) 07/29/24 09:55 [place] # (Auto) 0.5 10^3/uL (0.2-0.9) 07/29/24 09:55 Eos # (Auto) 0.1 10^3/uL (0.0-0.8) 07/29/24 09:55 Baso # (Auto) 0.1 10^3/uL (0.0-0.1) 07/29/24 09:55 Nucleated RBC % (auto) 0 % 07/29/24 09:55 Nucleated RBCs # 0.0 /100WBC 07/29/24 09:55 Sodium 137 mmol/L (136-145) 07/29/24 09:55 Potassium 4.2 mmol/L (3.5-5.1) 07/29/24 09:55 Chloride 104 mmol/L (98-107) 07/29/24 09:55 Carbon Dioxide 23 mmol/L (22-29) 07/29/24 09:55 Anion Gap 14.2 (5-19) 07/29/24 09:55 BUN 11 mg/dL (6-20) 07/29/24 09:55 Creatinine 0.8 mg/dL (0.7-1.2) 07/29/24 09:55 GFR Calculation 108.2 mL/min (90-130) 07/29/24 09:55 Glucose 93 mg/dL (65-115) 07/29/24 09:55 Calculated Osmolality 283 mOsm/kg (285-295) L 07/29/24 09:55 Calcium 8.7 mg/dL (8.5-10.5) 07/29/24 09:55 Total Bilirubin 0.6 mg/dL (0.15-1.2) 07/29/24 09:55 AST 30 U/L (0-40) 07/29/24 09:55 ALT 19 U/L (0-41) 07/29/24 09:55 Alkaline Phosphatase 76 U/L (40-130) 07/29/24 09:55 Total Protein 8.0 g/dL (6.6-8.7) 07/29/24 09:55 Albumin 4.3 g/dL (3.5-5.2) 07/29/24 09:55 Globulin 3.7 g/dL (1.3-4.6) 07/29/24 09:55 TSH 1.68 uIU/mL (0.27-4.20) 07/29/24 09:55 Urine Color Yellow (Yellow) 07/29/24 09:05 Urine Appearance Clear (CLEAR) 07/29/24 09:05 Urine pH 6 (5-7) 07/29/24 09:05 Ur Specific Alloway 1.010 (1.005-1.030) 07/29/24 09:05 Urine Protein Neg (Negative) 07/29/24 09:05 Urine Glucose (UA) Norm (Normal) 07/29/24 09:05 Urine Ketones Negative (Negative) 07/29/24 09:05 Urine Blood Neg (Negative) 07/29/24 09:05 Urine Nitrate Negative (Negative) 07/29/24 09:05 Urine Bilirubin Neg (Negative) 07/29/24 09:05 Urine Urobilinogen Neg mg/dL (Negative) 07/29/24 09:05 Ur Leukocyte Esterase 2+ (Negative) H 07/29/24 09:05 Urine RBC 0-2 /hpf (0-2) 07/29/24 09:05 Urine WBC 21-50 /hpf (0-5) H 07/29/24 09:05 Ur Squamous Epith Cells 0-5 /hpf (0-5) 07/29/24 09:05 Amorphous Sediment Not Reportable 07/29/24 09:05 Urine Bacteria None seen /hpf (NONE) 07/29/24 09:05 Hyaline Casts 0-4 /lpf H 07/29/24 09:05 Salicylates < 0.3 mg/dL (3-10) L 07/29/24 09:55 Urine Opiates Screen Negative ng/mL (Negative) 07/29/24 09:05 Acetaminophen < 5.0 ug/mL (10-30) L 07/29/24 09:55 Ur Barbiturates Screen Negative ng/mL (Negative) 07/29/24 09:05 Ur Phencyclidine Scrn Negative ng/mL (Negative) 07/29/24 09:05 Ur Amphetamines Screen Negative ng/mL (Negative) 07/29/24 09:05 U Benzodiazepines Scrn Negative ng/mL (Negative) 07/29/24 09:05 Urine Cocaine Screen Negative ng/mL (Negative) 07/29/24 09:05 U Marijuana (THC) Screen Positive ng/mL (Negative) H 07/29/24 09:05 Ethyl Alcohol < 10 mg/dL (0-10) 07/29/24 09:55 No radiology studies performed this visit Discharge Plan Discharge Patient Disposition: Admitted As Inpatient Clinical Impression: Depression, Acute anxiety Condition: Stable Coding Level of Care Code ED [facility] [address] [facility] for Joesph Mann
[2024-07-29 09:02] VITALS: RESP 18
[2024-07-29 09:15] LABS: Bacteria Urine None Seen /hpf; Hyaline Casts Urine 0-4 /lpf; RBC Urine 0-2 /hpf (0-2); Squamous Epithelial Cell Urine 0-5 /hpf (0-5); WBC Urine 21-50 /hpf (0-5)
[2024-07-29 09:17] LABS: Bilirubin Urine Neg (Negative); Blood Urine Neg (Negative); Glucose Urine UA Norm (Normal); Ketones Urine Negative (Negative); Leukocyte Esterase Urine 2+ (Negative); Nitrate Urine Negative (Negative); Protein Urine Neg (Negative); Urine Appearance Clear (CLEAR); Urine Color Yellow (Yellow); Urobilinogen Urine Neg (Negative); pH Urine 6 (5-7)
[2024-07-29 09:19] LABS: Add Urine Culture? Yes
[2024-07-29 09:20] LABS: Amphetamines Screen Urine Negative (Negative); Barbiturates Screen Urine Negative (Negative); Benzodiazepines Screen Urine Negative (Negative); Cocaine Screen Urine Negative (Negative); Opiate Screen Urine Negative (Negative); PCP Screen Urine Negative (Negative); THC Screen Urine Positive (Negative)
[2024-07-29 10:07] LABS: Basophils # 0.1 10^3/uL (0.0-0.1); Basophils % 0.6 %; Eosinophils # 0.1 10^3/uL (0.0-0.8); Eosinophils % 1.4 %; Hematocrit 39.4 % (37-53); Lymphocytes # 1.6 10^3/uL (0.8-4.8); Lymphocytes % 20.2 %; Mean Corpuscular Hemoglobin 29.3 pg (27-33); Mean Corpuscular Volume 88.7 fl (82-101); Mean Platelet Volume 8.4 fL (7.4-10.4); Monocytes # 0.5 10^3/uL (0.2-0.9); Monocytes % 5.6 %; Neutrophils # 5.79 10^3/uL (1.8-7.7); Nucleated Red Blood Cells % 0 %; Platelet Count 171 10^3/cmm (157-399); Red Blood Count 4.44 10^6/uL (3.85-5.65); Red Cell Distribution Width 13.1 % (12.1-15.1); White Blood Count 8.05 10^3/uL (3.29-11.43)
[2024-07-29] MEDS: LORazepam 1 mg Tablet PO (10:11)
[2024-07-29 10:39] LABS: Alanine Aminotransferase 19 U/L (0-41); Albumin Level 4.3 g/dL (3.5-5.2); Alkaline Phosphatase 76 U/L (40-130); Anion Gap 14.2 (5-19); Aspartate Amino Transferase 30 U/L (0-40); Blood Urea Nitrogen 11 mg/dL (6-20); Calcium 8.7 mg/dL (8.5-10.5); Carbon Dioxide 23 mmol/L (22-29); Chloride 104 mmol/L (98-107); Creatinine Clr Calc Pharmacy 144.7132; Globulin 3.7 g/dL (1.3-4.6); Glomerular Filtration Rate 108.2 mL/min (90-130); Glucose 93 mg/dL (65-115); Osmolality Calculated 283 mOsm/kg (285-295); Potassium 4.2 mmol/L (3.5-5.1); Sodium 137 mmol/L (136-145); Thyroid Stimulating Hormone 1.68 uIU/mL (0.27-4.20); Total Bilirubin 0.6 mg/dL (0.15-1.2)
[2024-07-29 10:40] LABS: Acetaminophen < 5.0 ug/mL (10-30); Alcohol Level < 10 mg/dL (0-10); Salicylate < 0.3 mg/dL (3-10)
--- NOTE | 2024-07-29 10:45 | PC.NURSE ---
96 hour hold rights read and reviewed with patient. Karen from security present during reading of rights. Patient verbalized understandings and copy of rights given to patient.
--- NOTE | 2024-07-29 11:05 | PC.NURSE ---
attempted to call report, per NPU staff nurse is unable at this time. states will call back
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
--- NOTE | 2024-07-29 12:55 | PC.NURSE ---
attempted to call report again, NPU states cannot take report d/t not having both ICU beds. NPU nurse states [employer] told them to take both ICU admits prior to ER admit. this nurse contacted HS, HS states will call NPU.
--- NOTE | 2024-07-29 13:08 | PC.NURSE ---
pt report called to NPU, no further questions. ED UC calling security at this time for transport.
[2024-07-29 13:35] VITALS: BP 135/83; PULSE 94; RESP 16; TEMP 36.8; O2SAT 99
--- NOTE | 2024-07-29 13:38 | PC.NURSE ---
THIS RN CONTACTED [facility] AND CONFIRMED METHADONE DOSE. STAFF STATE HE TAKES 100 MG OF METHADONE DAILY AND CURRENTLY HAS ENOUGH MEDICATIONS UNTIL THE 15TH OF THIS MONTH. PT GAVE VERBAL CONSENT TO SPEAK WITH [facility] PROVIDER.
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
[2024-07-29] MEDS: nicotine 2 mg Gum BUCCAL (14:55)
[2024-07-29] MEDS: hyDROXYzine 25 mg Capsule 50 MG PO ×2 (14:55→20:03)
[2024-07-29] MEDS: mirtazapine 15 mg Tablet PO (20:03)
[2024-07-29] MEDS: trazodone 50 mg Tablet PO (20:04)
[2024-07-29 20:11] VITALS: BP 143/80; PULSE 90; RESP 18; TEMP 37.4; O2SAT 99
--- NOTE | 2024-07-30 | PC.NURSE ---
07/29/24 @ 1930 Angry, demanding staff to get ativan for him, states He (physician) just told me you can go get it right now , no active order (order for PO ativan shows d/c 07/29/24 @1001, attempted to tell pt that if physician orders it for him, it might take a few minutes, as doc is still currently in the same area, not yet back from seeing others; pt began getting louder et more insistant et insulting, cursing to various staff, unable to redirect, console or educate. He was asked to step back et try to regain self control et interaction was ceased verbally by staff. Pt continued to yell but walked a short distance to sit on bench near nursing station et continues to glare/ stare down et make inappropriate comments to staff members. Security et supervisory nursing made aware, pt eventually becomes quieter et begins pacing the maria, but is remarkedly more self controlled. Nursing is attempting to assist with his requests et continues to monitor for needs et changes. 07/29/241999 Patient @ nursing station maintaining self control et cooperating with medication administration of his scheduled Remron as well as accepting PRN assist Vistaril et Trazodone. Nsg informs him that continual update of information regarding his request for ativan is ongoing by nsg, et he acknowledges effort. He is cooperative though sullen. He returns to pacing nearby in less intrusive manner. 07/29/24 Follow up- 2100 He is currently resting with eyes closed, absent of s/sx of distress. Physician has departed et no changes have been noted to ativan order, nor new orders added at this time. Nursing continues to monitor for needs et changes.
[2024-07-30 06:00] VITALS: BP 129/81; PULSE 74; RESP 18; TEMP 36.5; O2SAT 99
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
[2024-07-30] MEDS: nicotine 2 mg Gum BUCCAL ×2 (07:44→10:12)
[2024-07-30 08:00] VITALS: RESP 18
[2024-07-30] MEDS: pantoprazole DR 40 mg Tablet PO (08:00)
[2024-07-30] MEDS: methadone 10 mg Tablet 100 MG PO (08:00)
[2024-07-30] MEDS: venlafaxine ER (24HR) 75 mg Capsule PO (08:00)
[2024-07-30] MEDS: hyDROXYzine 25 mg Capsule 50 MG PO ×2 (08:37→20:21)
[2024-07-30 14:00] VITALS: BP 120/74; PULSE 67; RESP 16; TEMP 36.4; O2SAT 97
[2024-07-30] MEDS: nicotine 4 mg lozenge MUCOUS MEM ×2 (14:24→17:51)
[2024-07-30 20:05] VITALS: BP 106/70; PULSE 62; RESP 17; TEMP 36.7; O2SAT 97
[2024-07-30] MEDS: trazodone 50 mg Tablet PO (20:21)
[2024-07-30] MEDS: mirtazapine 15 mg Tablet PO (20:21)
[2024-07-31 06:00] VITALS: BP 112/65; PULSE 60; RESP 18; TEMP 37.2; O2SAT 95; BMI 30.3
[2024-07-31] MEDS: nicotine 4 mg lozenge MUCOUS MEM ×5 (06:20→17:42)
[2024-07-31 07:58] VITALS: RESP 16
[2024-07-31] MEDS: pantoprazole DR 40 mg Tablet PO (07:58)
[2024-07-31] MEDS: methadone 10 mg Tablet 100 MG PO (07:58)
[2024-07-31] MEDS: venlafaxine ER (24HR) 75 mg Capsule PO (07:58)
[2024-07-31 14:00] VITALS: BP 102/52; PULSE 50; RESP 16; TEMP 36.6; O2SAT 96
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
[2024-07-31] MEDS: mirtazapine 15 mg Tablet PO (20:30)
[2024-07-31] MEDS: hyDROXYzine 25 mg Capsule 50 MG PO (20:30)
[2024-07-31] MEDS: trazodone 50 mg Tablet PO (20:30)
[2024-07-31 21:52] VITALS: BP 124/71; PULSE 72; RESP 18; O2SAT 96
[2024-08-01] MEDS: nicotine 4 mg lozenge MUCOUS MEM ×3 (05:07→08:50)
[2024-08-01 06:00] VITALS: BP 121/72; PULSE 68; RESP 18; TEMP 37.1; O2SAT 99
[2024-08-01 07:57] VITALS: RESP 18
[2024-08-01] MEDS: methadone 10 mg Tablet 100 MG PO (07:57)
[2024-08-01] MEDS: pantoprazole DR 40 mg Tablet PO (07:57)
[2024-08-01] MEDS: venlafaxine ER (24HR) 75 mg Capsule PO (07:57)
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
[2024-08-01 09:56] VITALS: BP 121/72; PULSE 68; RESP 18; TEMP 37.1; O2SAT 99
== END 2024-08-01 10:35 | disposition home or self-care (01) | DRG 885 ==
LOC: ER 10:49 → NP 11:05
PROVIDERS: Admitting Provider Psychiatry & Neurology Psychiatry; Emergency Provider Emergency Medicine; PCP Family Medicine; Visit Provider Psychiatry & Neurology Psychiatry
DX: F33.9 Major depressive disorder, recurrent, unspecified (principal); F11.20 Opioid dependence, uncomplicated; F41.1 Generalized anxiety disorder; F17.210 Nicotine dependence, cigarettes, uncomplicated; F84.0 Autistic disorder; Z91.51 Personal history of suicidal behavior; K21.9 Gastro-esophageal reflux disease without esophagitis
CPT/HCPCS: 36415; 80053; 80306; 80307; 81001; 84443; 85025; 87086; 93005; 97150; 97165; 99285; J9999

== ENCOUNTER → 2024-09-27 10:53 | Outpatient (BNVA) | payer OTHER, MEDICAID, SELFPAY | PROVIDERS: PCP Family Medicine; Visit Provider Nurse Practitioner Psychiatric/Mental Health | DX: F41.1 Generalized anxiety disorder (principal) | CPT/HCPCS: 80061; 83036; 83721 ==

== ENCOUNTER 2024-11-26 12:11 | Inpatient (IN) | payer OTHER, MEDICAID, SELFPAY ==
[2024-09-29 15:41] VITALS: BP 128/86; BMI 32.7
[2024-11-26 12:18] VITALS: BP 144/77; PULSE 87; RESP 17; TEMP 36.8; O2SAT 94; BMI 31.0
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
--- NOTE | 2024-11-26 12:32 | ECG_ITS ---
[facility] 2024[facility]26 Pat Name: Curry Vidal Department: Room: Gender: Male Scientific Illustrator: : 1985 Requested By: Erma Patterson Order Number: [id number] Rose MD: Oksana Dhaliwal M.D. Measurements Intervals [place] Rate: 70 P: 27 TX: 118 QRS: 38 QRSD: 93 T: 31 QT: 358 QTc: 388 Interpretive Statements SINUS RHYTHM WITH SHORT TX INTERVAL Compared to ECG 07/29/2024 08:48:22 Short TX interval now present Sinus tachycardia no longer present Electronically Signed On 11-29-2024 08:20:46 CDT by Oksana Dhaliwal M.D. [email or web address]
[2024-11-26 12:39] LABS: Hematocrit 38.3 % (37-53); Hemoglobin 13.20 g/dL (11.27-16.99); Mean Corpuscular HGB Conc 34.5 g/dL (30-55); Mean Corpuscular Hemoglobin 30.0 pg (27-33); Mean Corpuscular Volume 87.0 fl (82-101); Nucleated Red Blood Cells % 0 %; Platelet Count 168 10^3/cmm (157-399); Red Blood Count 4.40 10^6/uL (3.85-5.65); White Blood Count 7.23 10^3/uL (3.29-11.43)
[2024-11-26 12:45] LABS: Glucose Urine UA Negative (Normal); Nitrate Urine Negative (Negative); Specific Gravity, Urine 1.017 (1.005-1.030)
[2024-11-26 12:47] LABS: Add Urine Microscopic? YES
[2024-11-26 12:52] LABS: PCP Screen Urine Negative (Negative)
[2024-11-26 13:07] LABS: Albumin Level 4.0 g/dL (3.5-5.2); Alkaline Phosphatase 96 U/L (40-130); Anion Gap 14.3 (5-19); Blood Urea Nitrogen 14 mg/dL (6-20); Calcium 9.0 mg/dL (8.5-10.5); Carbon Dioxide 24 mmol/L (22-29); Chloride 103 mmol/L (98-107); Creatinine Clr Calc Pharmacy 162.9604; Globulin 3.7 g/dL (1.3-4.6); Glucose 95 mg/dL (65-115); Osmolality Calculated 284 mOsm/kg (285-295); Potassium 4.3 mmol/L (3.5-5.1); Sodium 137 mmol/L (136-145); Thyroid Stimulating Hormone 5.24 uIU/mL (0.27-4.20); Total Protein 7.7 g/dL (6.6-8.7)
[2024-11-26 13:12] LABS: Acetaminophen < 5.0 ug/mL (10-30); Alcohol Level < 10 mg/dL (0-10); Salicylate < 0.3 mg/dL (3-10)
[2024-11-26 13:18] LABS: Alanine Aminotransferase < 5 U/L (0-41); Aspartate Amino Transferase 5 U/L (0-40)
--- NOTE | 2024-11-26 13:30 | PC.NURSE ---
Involuntary 96 hour hold rights read and reviewed with patient. Dennys from security present during reading of rights. Patient verbalized understandings and copy of rights given to patient.
[2024-11-26 14:05] VITALS: BP 102/55; PULSE 104; RESP 18; TEMP 36.6; O2SAT 99
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
[2024-11-26 19:24] VITALS: BP 101/60; PULSE 58; RESP 18; TEMP 36.7; O2SAT 96
[2024-11-27 06:00] VITALS: BP 121/77; PULSE 81; RESP 18; TEMP 36.6; O2SAT 98
--- NOTE | 2024-11-27 07:18 | PC.NURSE ---
Pt. states he takes Methadone 100mg QD for addiction. Dr. Parry called and gave verbal order for one time dose of Methadone 100mg now.
[2024-11-27 07:44] VITALS: RESP 20
[2024-11-27] MEDS: venlafaxine ER (24HR) 75 mg Capsule PO (07:45)
[2024-11-27 14:00] VITALS: BP 105/60; PULSE 73; RESP 18; TEMP 36.6; O2SAT 93
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
[2024-11-27 20:16] VITALS: BP 110/71; PULSE 71; RESP 18; TEMP 37.1; O2SAT 97
[2024-11-28 06:00] VITALS: BP 117/82; PULSE 85; RESP 18; TEMP 37; O2SAT 95
--- NOTE | 2024-11-28 07:08 | PC.NURSE ---
Called [facility] this am and left a voice mail for the nurse requesting a medication verification.
[2024-11-28] MEDS: venlafaxine ER (24HR) 75 mg Capsule PO (08:13)
--- NOTE | 2024-11-28 08:21 | PC.NURSE ---
Called [facility] and spoke with a [place] nurse station supervisor and verified pt.'s Methodone order 100mg PO QD.
[2024-11-28 08:41] VITALS: RESP 20
[2024-11-28 14:00] VITALS: BP 117/80; PULSE 83; RESP 18; TEMP 36.8; O2SAT 96
--- NOTE | 2024-11-28 16:58 | P.NPUPN_ITS ---
Subjective NPU 2 Subjective: Patient presented today reporting that he is doing fine. He reports that he has a tendency to have these moments of poor impulse control but then he gathered himself together and is able to manage moving forward. He feels he is at that point again. He denied any side effects to his medication and we discussed likelihood of discharge tomorrow. Mental Status Exam 2 MSE Comments: This is an obese, white male, in hospital scrubs with poor grooming, and limited eye contact. No abnormal movements except for mild psychomotor retardation. Cooperative with exam in no acute distress. Speech was normal rate and volume, and very effeminate. Mood described as better, I think I am ready to go; affect congruent. Thought process, organized. Thought content: patient denied any suicidal or homicidal ideation, there were no delusions reported or noted, patient denied any auditory or visual hallucinations. Attention, concentration, and memory appeared intact but were not formally tested. He was alert and oriented times three. Insight and judgment are limited but improving, impulse control is impaired. Vitals/I&O/Wt Last Vital Signs Temp 98.6 F 11/28/24 06:00 Pulse 85 11/28/24 06:00 Resp 20 H 11/28/24 08:41 BP 117/82 11/28/24 06:00 Pulse Ox 95 11/28/24 06:00 O2 Del Method Room Air 11/28/24 06:00 Weight last 48 hrs Weight 104.417 kg Data NPU 11/26/24 12:34 11/26/24 12:34 Micro: Microbiology 11/26/24 12:34 Urine Culture - Final Urine,Clean Catch Microbiology 11/26/24 12:34 Urine,Clean Catch Urine Culture - Final A&P Assessment and plan 1. Depressive disorder, not elsewhere classified: 2. Cluster B personality disorder: 3. Suicidal ideation: 4. Nicotine dependence, cigarettes, uncomplicated: 5. Autistic disorder: 6. Marijuana dependence: 7. Major depressive disorder, recurrent, severe without psychotic features: 8. Chronic post-traumatic stress disorder: 9. Insomnia: 10. Opioid dependence on agonist therapy: 11. Generalized anxiety disorder: Plan: This is a 39-year-old white male with significant history of mental health issues with significant past inpatient stays here in the past 6 years. He presents with reports of suicidal ideation and significant psychosocial stressors and current and past addiction issues. 1. Continue current medication and will evaluate for need for changes. 2. Encourage individual, group and milieu therapy. 3. Continue every 15 minute checks for safety. 4. Encourage sober living treatment after discharge to the highest level care to which he is willing to commit. 5. Obtain collateral information. 6. Observe against the backdrop of the 96-hour hold. PDMP PDMP Reviewed: Not Reviewed Involuntary Hold Information 2 Hold Status: Legal Status: 96 Hour Hold Date/Time Hold Expires: 12/02/2024@ 1300 96 Hour Hold: 96 Hour Involuntary Admission: No Attestations NPU 2 Medical Necessity Statement*: Inpatient hospitalization is medically necessary and the clinically appropriate intervention at this time. We will monitor/initiate medications and make changes as indicated. Likely length of stay 1-3 days. Coding Level of Care Code Acute Code for [facility] Fwd Diagnoses Depressive disorder, not elsewhere classified F32.89 Cluster B personality disorder F60.89 Suicidal ideation R45.851 Nicotine dependence, cigarettes, uncomplicated F17.210 Autistic disorder F84.0 Marijuana dependence F12.20 Major depressive disorder, recurrent, severe without psychotic features F33.2 Chronic post-traumatic stress disorder F43.12 Insomnia G47.00 Opioid dependence on agonist therapy F11.20 Generalized anxiety disorder F41.1
[2024-11-28 19:41] VITALS: BP 107/51; PULSE 65; RESP 16; TEMP 36.6; O2SAT 97
[2024-11-29 06:00] VITALS: BP 121/72; PULSE 78; RESP 18; TEMP 37.9; O2SAT 98
[2024-11-29 08:09] VITALS: RESP 20
[2024-11-29] MEDS: venlafaxine ER (24HR) 75 mg Capsule PO (08:09)
--- NOTE | 2024-11-29 11:42 | P.NPUDS_ITS ---
Diagnoses at Discharge Discharge Diagnosis 1. Depressive disorder, not elsewhere classified: 2. Cluster B personality disorder: 3. Suicidal ideation: 4. Nicotine dependence, cigarettes, uncomplicated: 5. Autistic disorder: 6. Marijuana dependence: 7. Major depressive disorder, recurrent, severe without psychotic features: 8. Chronic post-traumatic stress disorder: 9. Insomnia: 10. Opioid dependence on agonist therapy: 11. Generalized anxiety disorder: Reason for Visit Reason for Visit: MHE Involuntary Hold Information Hold Status: Legal Status: 96 Hour Hold Date/Time Hold Expires: 12/02/2024@ 1300 96 Hour Hold: 96 Hour Involuntary Admission: No Mental Status Exam MSE Comments: This is an obese, white male, in hospital scrubs with poor grooming, and limited eye contact. No abnormal movements except for mild psychomotor retardation. Cooperative with exam in no acute distress. Speech was normal rate and volume, and very effeminate. Mood described as better, I think I am ready to go; affect congruent. Thought process, organized. Thought content: patient denied any suicidal or homicidal ideation, there were no delusions reported or noted, patient denied any auditory or visual hallucinations. Attention, concentration, and memory appeared intact but were not formally tested. He was alert and oriented times three. Insight and judgment are limited but improving, impulse control is impaired. Discharge Data Studies Completed and Pending: Laboratory Results WBC 7.23 10^3/uL (3.2 9-11.43) 11/26/24 12:34 RBC 4.40 10^6/uL (3.8 5-5.65) 11/26/24 12:34 Hgb 13.20 g/dL (11.27 -16.99) 11/26/24 12:34 Hct 38.3 % (37-53) 11/26/24 12:34 MCV 87.0 fl (82-101) 11/26/24 12:34 MCH 30.0 pg (27-33) 11/26/24 12:34 MCHC 34.5 g/dL (30-55) 11/26/24 12:34 RDW 13.3 % (12.1-15.1 ) 11/26/24 12:34 Plt Count 168 10^3/cmm (157 -399) 11/26/24 12:34 MPV 8.3 fL (7.4-10.4) 11/26/24 12:34 Neut % (Auto) 52.1 % 11/26/24 12:34 Lymph % (Auto) 36.7 % 11/26/24 12:34 [place] % (Auto) 7.7 % 11/26/24 12:34 Eos % (Auto) 2.8 % 11/26/24 12:34 Baso % (Auto) 0.4 % 11/26/24 12:34 Neut # (Auto) 3.77 10^3/uL (1.8 -7.7) 11/26/24 12:34 Lymph # (Auto) 2.7 10^3/uL (0.8- 4.8) 11/26/24 12:34 [place] # (Auto) 0.6 10^3/uL (0.2- 0.9) 11/26/24 12:34 Eos # (Auto) 0.2 10^3/uL (0.0- 0.8) 11/26/24 12:34 Baso # (Auto) 0.0 10^3/uL (0.0- 0.1) 11/26/24 12:34 Nucleated RBC % (a uto) 0 % 11/26/24 12:34 Nucleated RBCs # 0.0 /100WBC 11/26/24 12:34 Sodium 137 mmol/L (136-1 45) 11/26/24 12:34 Potassium 4.3 mmol/L (3.5-5 .1) 11/26/24 12:34 Chloride 103 mmol/L (98-10 7) 11/26/24 12:34 Carbon Dioxide 24 mmol/L (22-29) 11/26/24 12:34 Anion Gap 14.3 (5-19) 11/26/24 12:34 BUN 14 mg/dL (6-20) 11/26/24 12:34 Creatinine 0.7 mg/dL (0.7-1. 2) 11/26/24 12:34 GFR Calculation 126.2 mL/min (90- 130) 11/26/24 12:34 Glucose 95 mg/dL (65-115) 11/26/24 12:34 Calculated Osmolal ity 284 mOsm/kg (285- 295) L 11/26/24 12:34 Calcium 9.0 mg/dL (8.5-10 .5) 11/26/24 12:34 Total Bilirubin 0.4 mg/dL (0.15-1 .2) 11/26/24 12:34 AST 5 U/L (0-40) 11/26/24 12:34 ALT < 5 U/L (0-41) 11/26/24 12:34 Alkaline Phosphata se 96 U/L (40-130) 11/26/24 12:34 Total Protein 7.7 g/dL (6.6-8.7 ) 11/26/24 12:34 Albumin 4.0 g/dL (3.5-5.2 ) 11/26/24 12:34 Globulin 3.7 g/dL (1.3-4.6 ) 11/26/24 12:34 TSH 5.24 uIU/mL (0.27 -4.20) H 11/26/24 12:34 Urine Color Yellow (Yellow) 11/26/24 12:34 Urine Appearance Clear (CLEAR) 11/26/24 12:34 Urine pH 5.5 (5-7) 11/26/24 12:34 Ur Specific [place]it y 1.017 (1.005-1.0 30) 11/26/24 12:34 Urine Protein Negative (Negati ve) 11/26/24 12:34 Urine Glucose (UA) Negative (Normal ) 11/26/24 12:34 Urine Ketones Negative (Negati ve) 11/26/24 12:34 Urine Blood Negative (Negati ve) 11/26/24 12:34 Urine Nitrate Negative (Negati ve) 11/26/24 12:34 Urine Bilirubin Negative (Negati ve) 11/26/24 12:34 Urine Urobilinogen 1.0 mg/dL (Negati ve) 11/26/24 12:34 Ur Leukocyte Abby ase 1+ (Negative) A 11/26/24 12:34 Urine RBC 0-2 /hpf (0-2) 11/26/24 12:34 Urine WBC 21-50 /hpf (0-5) H 11/26/24 12:34 Ur Squamous Epith Cells 0-5 /hpf (0-5) 11/26/24 12:34 Amorphous Sediment Not Reportable 11/26/24 12:34 Urine Bacteria None seen /hpf (N ONE) 11/26/24 12:34 Hyaline Casts 0-4 /lpf H 11/26/24 12:34 Salicylates < 0.3 mg/dL (3-10 ) L 11/26/24 12:34 Urine Opiates Scre en Negative ng/mL (N egative) 11/26/24 12:34 Acetaminophen < 5.0 ug/mL (10-3 0) L 11/26/24 12:34 Ur Barbiturates Sc reen Negative ng/mL (N egative) 11/26/24 12:34 Ur Phencyclidine S crn Negative ng/mL (N egative) 11/26/24 12:34 Ur Amphetamines Sc reen Negative ng/mL (N egative) 11/26/24 12:34 U Benzodiazepines Scrn Negative ng/mL (N egative) 11/26/24 12:34 Urine Cocaine Scre en Negative ng/mL (N egative) 11/26/24 12:34 U Marijuana (THC) Screen Positive ng/mL (N egative) H 11/26/24 12:34 Ethyl Alcohol < 10 mg/dL (0-10) 11/26/24 12:34 Vitals: Last Vital Signs Temp 100.3 F H 11/29/24 06:00 Pulse 78 11/29/24 06:00 Resp 20 H 11/29/24 08:09 BP 121/72 11/29/24 06:00 Pulse Ox 98 11/29/24 06:00 O2 Del Method Room Air 11/29/24 06:00 Discharge Plan Discharge Patient Disposition: Home Condition: Stable Prescriptions: New cephalexin 500 mg Capsule 500 mg PO TID 3 Days Qty: 7 0RF hydroxyzine pamoate 25 mg Capsule 50 mg PO Q6H PRN (Reason: Anxiety) 30 Days Qty: 120 1RF Continued mirtazapine 15 mg tablet 15 mg PO BEDTIME 30 Days Qty: 30 3RF omeprazole 20 mg capsule,delayed release(DR/EC) 20 mg PO DAILY PRN (Reason: acid reflux) Qty: 60 1RF venlafaxine 75 mg capsule,extended release 24hr 75 mg PO QAM ammonium lactate [AmLactin] 12 % lotion 1 applic topical DAILY PRN (Reason: Dry Skin) trazodone 50 mg tablet 50 - 100 mg PO BEDTIME PRN (Reason: Sleep) methadone 40 mg Tablet,Soluble 100 mg PO DAILY Discharge Order = DC NOW: Discharge Order (Routine); Ordered 11/29/24 Ordered By: Lemuel Parry Referrals: [facility] [Other] - 11/30/24 Referral Note: Arrive between 6am and 12:30pm Sweetie Ayala PMHNP [Staff Physician, Psychiatry] Delroy Rodriges MD [Primary Care Provider, Family Practice] Discharge Diet: Regular Discharge Activity: Resume usual activity Patient Instructions: Opioid Safety, Patient Portal & Fariha Instructions Discharge Attestations [facility] Time Spent in Discharge Care*: less than 30 min Specific Discharge Activities: Specific discharge activities: educating patient, discussing with residential case manager/social workers/dc planners, documenting/other paperwork and evaluating patient/reviewing data Coding Level of Care Code Acute Code for [facility] Fwd Diagnoses Depressive disorder, not elsewhere classified F32.9 Cluster B personality disorder F60.89 Suicidal ideation R45.851 Nicotine dependence, cigarettes, uncomplicated F17.210 Autistic disorder F84.0 Marijuana dependence F12.20 Major depressive disorder, recurrent, severe without psychotic features F33.2 Chronic post-traumatic stress disorder F43.12 Insomnia G47.00 Opioid dependence on agonist therapy F11.20 Generalized anxiety disorder F41.1
[2024-11-29 13:39] VITALS: BP 121/72; PULSE 78; RESP 18; TEMP 37.1; O2SAT 98
[2024-11-29 13:40] VITALS: BP 121/72; PULSE 78; RESP 18; TEMP 37.1; O2SAT 98
== END 2024-11-29 14:05 | disposition home or self-care (01) | DRG 885 ==
LOC: ER 12:36 → NP 13:10
PROVIDERS: Admitting Provider Psychiatry & Neurology Psychiatry; Emergency Provider Emergency Medicine; PCP Family Medicine; Visit Provider Psychiatry & Neurology Psychiatry
DX: F33.2 Major depressive disorder, recurrent severe without psychotic features (principal); R45.851 Suicidal ideations; F11.20 Opioid dependence, uncomplicated; F60.89 Other specific personality disorders; F17.210 Nicotine dependence, cigarettes, uncomplicated; F84.0 Autistic disorder; F12.20 Cannabis dependence, uncomplicated; F41.1 Generalized anxiety disorder; K21.9 Gastro-esophageal reflux disease without esophagitis; E66.9 Obesity, unspecified; Z68.34 Body mass index [BMI] 34.0-34.9, adult; G47.00 Insomnia, unspecified; F43.12 Post-traumatic stress disorder, chronic
CPT/HCPCS: 80053; 80306; 80307; 81001; 84443; 85025; 87086; 93005; 97150; 97165; 99285; J9999

== ENCOUNTER 2024-12-25 19:22 | Emergency (ER) | payer MEDICAID, SELFPAY ==
[2024-09-29 15:41] VITALS: BP 128/86; BMI 32.7
[2024-12-25 19:33] VITALS: BP 119/77; PULSE 83; RESP 18; TEMP 37.1; O2SAT 96; BMI 31.5
--- NOTE | 2024-12-25 19:46 | ED.C_ITS ---
HPI - Psych 2 General: Chief Complaint: Psychiatric Symptoms Stated Complaint: MHE Time Seen by Provider: 12/25/24 19:28 History of Present Illness: Patient is a 39-year-old male that was discharged from the [facility] today, returns back to the hospital with severe depression, severe anxiety, and suicidal ideation. Patient states his plan is to take all of his pills and kill himself. Apparently, girlfriend broke up with him, and girlfriend has a restraining order against him, that was asking him all day have you killed yourself yet. Phone also notes the alleged girlfriend calling him a [email or web address] fag. This is from a phone number, and does not have her name with it. Associated symptoms: Reports depression and suicidal ideation Related Data Home Medications ?Medication ?Instructions ?Recorded ?Confirmed methadone 40 mg soluble tablet 100 mg PO .6 am 5 12/02/24 Previous Rx's ?Medication ?Instructions ?Recorded omeprazole 20 mg capsule,delayed 20 mg PO DAILY PRN ac id reflux #60 07/07/24 release caps hydroxyzine pamoate 25 mg capsule 50 mg (2 x 25 mg) PO Q6H PRN 11/29/24 Anxiety 30 days #120 caps prazosin 1 mg capsule 1 mg PO BEDTIME 30 days #30 caps 12/02/24 trazodone 50 mg tablet 50 mg PO BEDTIME PRN Sleep 3 0 days 12/02/24 #60 tabs venlafaxine 150 mg 150 mg PO QAM #30 caps 12/02 capsule,extended release 24 hr (Effexor XR) Allergies Allergy/AdvReac Type Severity Reaction Status Date / Time tramadol Allergy Severe ADR-Seizure Verified 12/02/24 09:51 olanzapine Allergy Intermediate ADR-Agitate Verified 12/02/24 09:51 d sulfamethoxazole (From Allergy Intermediate hives Verified 12/02/24 09:51 Bactrim) trimethoprim (From Bactrim) Allergy Intermediate hives Verified 12/02/24 09:51 codeine Allergy Mild ADR-Itching Verified 12/02/24 09:51 haloperidol (From Haldol) Allergy Mild ADR-Agitate Verified 12/02/24 09:51 d ziprasidone (From Geodon) Allergy ADR-Agitate Verified 12/02/24 09:51 d Review of Systems 2 General: Reports: 10 or more systems reviewed and unremarkable except in HPI and below Const: Denies: fever(s) or chills Eyes: Denies: change in vision or blurry vision ENMT: Denies: throat pain or mouth pain Resp: Denies: dyspnea or non-productive cough GI: Denies: abdominal pain, nausea or vomiting : Denies: flank pain or difficulty urinating Musc: Denies: neck pain, back pain or extremity pain Skin/Breast: Denies: rash or pruritus Neuro: Denies: headache(s) or numbness in extremities Psych: Reports: anxiety, depression and suicidal ideation PFS ED 2 PFSH: Medical History (Updated 12/26/24 @ 00:04 by MINESH Arzate) Opioid dependence on agonist therapy Nicotine dependence, cigarettes, uncomplicated Generalized anxiety disorder Autistic disorder Marijuana dependence Chronic post-traumatic stress disorder Major depressive disorder, recurrent, severe without psychotic features Psychiatric care Palpitations Ichthyosis vulgaris Severe tobacco use disorder Xerosis cutis High risk medication use GERD (gastroesophageal reflux disease) Family History Grandfather Diabetes mellitus, type 2 Grandmother Diabetes mellitus, type 2 Father Diabetes mellitus, type 2 Mother Diabetes mellitus, type 2 Social History (Updated 09/27/24 @ 11:50 by Danelle Ram RN) Smoking and tobacco/nicotine status: current every day tobacco/nicotine user cigarettes Packs smoked per day: 0.5 Years cigarettes smoked: 20 Quit status (tobacco/nicotine): considering quitting Second hand smoke exposure: Yes Alcohol intake: former Year of sobriety/quit date alcohol: 2023 Substance/Drug Use: former Date of last use: 5 years ago Former substance use details: 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 Adopted: No Caregiver/support person: Yes (roommate with [facility]) Lives independently: Yes Household members: friend(s) Housing: Manufactured/Mobile home Marital status: Single Number of children: 0 Highest education level completed: Associate Degree: Occupational, Technical, Vocational Program Education level details: General Studies Current occupational status: unemployed Current occupation: trying to get disability Current occupational exposures/hazards: No Pets and animals: Yes Pets & animals: cat(s) Leisure activites: games Sexually active: No Do you think of yourself as: Straight/Heterosexual Current gender identity: Male Ela/Samaritan: Yazidi Special ela needs: No Agree to transfusion: Yes Physical Exam 2 Const: COMMON NORMALS: patient oriented x3 EXAM LIMITATIONS: behavioral limitations GENERAL APPEARANCE: disheveled OTHER: Rocking back and forth with anxiety and pacing HENMT: COMMON NORMALS: normocephalic and atraumatic HEAD & SCALP: n ormocephalic and atraumatic Eye: COMMON NORMALS: Equal, round and reactive pupils present, EOMs intact bilaterally and conjunctivae normal CONJUNCTIVA: Yes conjunctivae normal P UPIL: Yes Equal, round and reactive pupils present Neck/C-Spine: COMMON NORMALS: full ROM and no lymphadenopathy Lymph: LYMPHATIC: no lymphadenopathy noted Chest: COMMONS NORMALS: normal inspection of the chest Resp: COMMON NORMALS: normal respiratory effort and clear to auscultation bilaterally AUSCULTATION: clear to auscultation bilaterally Cardio: COMMON NORMALS: regular rate and regular rhythm RATE: regular rate RHYTHM: regular rhythm GI: COMMON NORMALS: Normal to inspection, nondistended, normoactive bowel sounds present and Soft to palpation PALPATION: Yes Soft to palpation : COMMON NORMALS: Yes no CVA tenderness BLADDER/KIDNEY EXAM: Yes no CVA tenderness Back/Pelvis: COMMON NORMALS: no CVA tenderness Extremity: COMMON NORMALS: normal to inspection, full ROM and capillary refill normal Neuro: COMMON NORMALS: patient oriented x3 and CN's II-XII intact bilaterally Psych: ATTITUDE: Yes agitated ACTIVITY/MOTOR BEHAVIOR: Yes psychomotor agitation, Yes fidgeting, Yes hyperactivity, Yes restless and Yes Avoids eye contact (attititude/behavior) SPEECH: Yes rapid and Yes Pressured speech present MOOD & AFFECT: Yes anxious and Yes sad Course 2 Consultations: Consultation #1: [facility] excepted patient. Vital Signs: Vital signs: Vital Signs Temperature 98.8 F 12/25/24 19:33 Pulse Rate 83 12/25/24 19:33 Respiratory Rate 18 12/25/24 19:33 Blood Pressure 119/77 12/25/24 19:33 Pulse Oximetry 96 12/25/24 19:33 MDM - Psych Medical Decision Making Patient initially refused Vistaril 50 mg. He states intolerance to antipsychotics that are utilized routinely for this type of agitation in the ED, and declines. Request benzodiazepines. Given the fact he was rocking back and forth, nearly inconsolable, I gave him a x 1 of Ativan 2 mg IM. Lab Data 12/25/24 20:12/25/24 20: Laboratory Results WBC 7.29 10^3/uL (3.29-11.43) 12/25/24: RBC 5.00 10^6/uL (3.85-5.65) 12/25/24 20: Hgb 14.40 g/dL (11.27-16.99) 12/25/24: Hct 43.4 % (37-53) 12/25/24 20: MCV 86.8 fl (82-101) 12/25/24: MCH 28.8 pg (27-33) 12/25/24: MCHC 33.2 g/dL (30-55) 12/25/24: RDW 12.6 % (12.1-15.1) 12/25/24: Plt Count 164 10^3/cmm (157-399) 12/25/24: MPV 8.1 fL (7.4-10.4) 12/25/24: Neut % (Auto) 55.4 % 12/25/24: Lymph % (Auto) 34.2 % 12/25/24: [place] % (Auto) 6.7 % 12/25/24: Eos % (Auto) 2.9 % 12/25/24: Baso % (Auto) 0.7 % 12/25/24 Neut # (Auto) 4.04 10^3/uL (1.8-7.7) 12/25/24: Lymph # (Auto) 2.5 10^3/uL (0.8-4.8) 12/25/24: [place] # (Auto) 0.5 10^3/uL (0.2-0.9) 12/25/24 Eos # (Auto) 0.2 10^3/uL (0.0-0.8) 12/25/24: Baso # (Auto) 0.1 10^3/uL (0.0-0.1) 12/25/24 Nucleated RBC % (auto) 0 % 09/07/25 20:29 Nucleated RBCs # 0.0 /100WBC 12/25/24 20: Sodium 137 mmol/L (136-145) 12/25/24 20: Potassium 4.1 mmol/L (3.5-5.1) 12/25/24 20: Chloride 101 mmol/L (98-107) 12/25/24 20: Carbon Dioxide 24 mmol/L (22-29) 12/25/24: Anion Gap 16.1 (5-19) 12/25/24 20: BUN 12 mg/dL (6-20) 12/25/24: Creatinine 0.7 mg/dL (0.7-1.2) 12/25/24: GFR Calculation 126.2 mL/min (90-130) 12/25/24: Glucose 116 mg/dL (65-115) H 12/25/24 20: Calculated Osmolality 285 mOsm/kg (285-295) 12/25/24: Calcium 9.2 mg/dL (8.5-10.5) 12/25/24 20: Total Bilirubin 0.8 mg/dL (0.15-1.2) 12/25/24 20: AST 41 U/L (0-40) H 12/25/24 20: ALT 23 U/L (0-41) 12/25/24 20: Alkaline Phosphatase 85 U/L (40-130) 12/25/24 20: Total Protein 8.5 g/dL (6.6-8.7) 12/25/24 20: Albumin 4.4 g/dL (3.5-5.2) 12/25/24 20: Globulin 4.1 g/dL (1.3-4.6) 12/25/24 20: Urine Color Yellow (Yellow) 12/25/24 20: Urine Appearance Clear (CLEAR) 12/25/24 20: Urine pH 5.5 (5-7) 12/25/24 20:24 Ur Specific [place] 1.019 (1.005-1.030) 12/25/24 20:24 Urine Protein Negative (Negative) 12/25/24 20:24 Urine Glucose (UA) Negative (Normal) 12/25/24 20:24 Urine Ketones Negative (Negative) 12/25/24 20:24 Urine Blood Negative (Negative) 12/25/24 20:24 Urine Nitrate Negative (Negative) 12/25/24 20:24 Urine Bilirubin Negative (Negative) 12/25/24 20:24 Urine Urobilinogen 1.0 mg/dL (Negative) 12/25/24 20:24 Ur Leukocyte Esterase 2+ (Negative) A 12/25/24 20:24 Urine RBC 0-2 /hpf (0-2) 12/25/24 20:24 Urine WBC 21-50 /hpf (0-5) H 12/25/24 20:24 Ur Squamous Epith Cells 0-5 /hpf (0-5) 12/25/24 20:24 Amorphous Sediment Not Reportable 12/25/24 20:24 Urine Bacteria None seen /hpf (NONE) 12/25/24 20:24 Hyaline Casts 0-4 /lpf H 12/25/24 20:24 Salicylates < 0.3 mg/dL (3-10) L 12/25/24 20:29 Urine Opiates Screen Negative ng/mL (Negative) 12/25/24 20:24 Acetaminophen < 5.0 ug/mL (10-30) L 12/25/24 20:29 Ur Barbiturates Screen Negative ng/mL (Negative) 12/25/24 20:24 Ur Phencyclidine Scrn Negative ng/mL (Negative) 12/25/24 20:24 Ur Amphetamines Screen Negative ng/mL (Negative) 12/25/24 20:24 U Benzodiazepines Scrn Negative ng/mL (Negative) 12/25/24 20:24 Urine Cocaine Screen Negative ng/mL (Negative) 12/25/24 20:24 U Marijuana (THC) Screen Positive ng/mL (Negative) H 12/25/24 20:24 Ethyl Alcohol < 10 mg/dL (0-10) 12/25/24 20:29 Influenza A (PCR) Negative (Negative) 12/25/24 21:23 Influenza Type B (PCR) Negative (Negative) 12/25/24 21:23 RSV (PCR) Negative (Negative) 12/25/24 21:23 SARS-CoV-2 (PCR) Negative (Negative) 12/25/24 21:23 No radiology studies performed this visit Discharge Plan Discharge Patient Disposition: Xfer Psychiatric Hosp Clinical Impression: Suicidal ideation, Patient needs psychiatric hold for evaluation Condition: Stable Referrals: Delroy Rodriges MD [Primary Care Provider, Family Practice] Discharge Diet: Usual diet Discharge Activity: Resume usual activity Patient Instructions: Suicide Prevention (ED) Print Language: Irish Coding Level of Care Code ED Simulation Tech for Joesph Mann
[2024-12-25] MEDS: LORazepam 1 MG/0.5 ML injection 2 MG IM (20:06)
[2024-12-25 20:35] LABS: Hematocrit 43.4 % (37-53); Hemoglobin 14.40 g/dL (11.27-16.99); Mean Corpuscular HGB Conc 33.2 g/dL (30-55); Mean Corpuscular Hemoglobin 28.8 pg (27-33); Mean Corpuscular Volume 86.8 fl (82-101); Nucleated Red Blood Cells % 0 %; Platelet Count 164 10^3/cmm (157-399); Red Blood Count 5.00 10^6/uL (3.85-5.65); White Blood Count 7.29 10^3/uL (3.29-11.43)
[2024-12-25 20:40] LABS: Glucose Urine UA Negative (Normal); Nitrate Urine Negative (Negative); Specific Gravity, Urine 1.019 (1.005-1.030)
[2024-12-25 20:48] LABS: PCP Screen Urine Negative (Negative)
--- NOTE | 2024-12-25 20:56 | PC.NURSE ---
96 HH Pt served with copy of 96 HH by this RN and Security. Pt A&Ox3, no questions at this time. Pt states I'd much rather stay in the ER for 12 hours with the chance of going to this unit vs being transferred anywhere else.
[2024-12-25 21:04] LABS: Add Urine Microscopic? YES
[2024-12-25 21:04] LABS: Alanine Aminotransferase 23 U/L (0-41); Albumin Level 4.4 g/dL (3.5-5.2); Alkaline Phosphatase 85 U/L (40-130); Anion Gap 16.1 (5-19); Aspartate Amino Transferase 41 U/L (0-40); Blood Urea Nitrogen 12 mg/dL (6-20); Calcium 9.2 mg/dL (8.5-10.5); Carbon Dioxide 24 mmol/L (22-29); Chloride 101 mmol/L (98-107); Creatinine Clr Calc Pharmacy 169.4252; Globulin 4.1 g/dL (1.3-4.6); Glucose 116 mg/dL (65-115); Osmolality Calculated 285 mOsm/kg (285-295); Potassium 4.1 mmol/L (3.5-5.1); Sodium 137 mmol/L (136-145); Total Protein 8.5 g/dL (6.6-8.7)
--- NOTE | 2024-12-25 21:12 | ECG_ITS ---
[facility] 2024-12[facility]25 Pat Name: Curry Vidal Department: Room: Gender: Male Infectious Diseases Physician: : [id number] Requested By: Alma Carmona Order Number: [id number] Rose MD: SANKET GOMEZ Measurements Intervals [place] Rate: 58 P: 44 TN: 145 QRS: 28 QRSD: 94 T: 30 QT: 420 QTc: 414 Interpretive Statements SINUS BRADYCARDIA Compared to ECG 11/26/2024 12:32:44 Sinus rhythm no longer present Short TN interval no longer present Electronically Signed On 12-26-2024 10:48:37 CDT by SANKET GOMEZ [email or web address]
[2024-12-25 21:13] LABS: Acetaminophen < 5.0 ug/mL (10-30); Alcohol Level < 10 mg/dL (0-10); Salicylate < 0.3 mg/dL (3-10)
[2024-12-25 22:04] LABS: Respiratory Syncytial Virus Ce NEGATIVE (Negative); SARS-CoV-2 PCR NEGATIVE (Negative)
[2024-12-26] VITALS: BP 114/71; PULSE 53; RESP 16; O2SAT 98
== END 2024-12-26 09:37 ==
PROVIDERS: Emergency Provider Physician Assistant; PCP Family Medicine
DX: R45.851 Suicidal ideations (principal); Z04.6 Encounter for general psychiatric examination, requested by authority; Z11.52 Encounter for screening for COVID-19; F17.210 Nicotine dependence, cigarettes, uncomplicated
CPT/HCPCS: 36415; 80053; 80306; 80307; 81001; 85025; 87086; 87637; 93005; 96372; 99285; J2060; J9999